=== PATIENT | male | born 1935 | race Caucasian/White ===

== ENCOUNTER 2016-12-07 06:26 | Emergency (ER) | payer MEDICARE ==
[~2016-12-07] VITALS: Ht 175.3 cm; Wt 81.8 kg
[~2016-12-07 06:26] MED LIST: AMIO400T4 PO; AMLO10TA3 PO; CHOL200025 PO; CYAN500 PO; FERR325T39 PO; LEVO75TA4 PO; METO25TA6 PO; MULT-666 PO; NITR0.4T6 SL; OMEP40CA36 PO; PRAV40TA PO; WARF4TAB6 PO
[2016-12-07 06:31] VITALS: BP 118/57; PULSE 55; RESP 18; O2SAT 96
--- NOTE | 2016-12-07 06:42 | ED.REPORT ---
HPI-Abd Pain M 40 and Over Date of Service Dec 07, 2016 ED Provider: Asif Marin MD Patient is an 81 year old male on Warfarin who presents to the ED complaining of low back pain onset 3 weeks ago. Associated symptoms include lower abdominal pain, chills, fatigue, nausea, dizziness, dysuria (without Flomax), decreased appetite, weight loss (8-10 lbs over one month), constipation, hematochezia ( one instance 2 weeks ago), rash (on chest, abdomen, and back), and testicular pain. His back pain is intermittent but his abdominal pain is constant. He denies fever, vomiting, lower extremity swelling, or any other symptoms. He has seen his PCP because couldn't urinate and his PSA levels fluctuating so he was put on Flomax. Gastroenterology appt on 12/16/16 He has been taking 500 mg of Tylenol every 4-5 hours to manage his back pain. succinate omeprazole Nursing Notes Stated Complaint: BACK PAIN Chief Complaint: Male Abdominal Pain Nursing Notes Reviewed: Yes (CloudVolumes not reconciled, EMR indicates ho warfarin use) Allergies: Coded Allergies: No Known Allergies (Verified Allergy, Unknown, 12/07/16) Scheduled Amiodarone (Amiodarone) 400 Mg Tablet 400 MG PO TID Amlodipine (Amlodipine) 10 Mg Tablet 10 MG PO DAILY Cholecalciferol (Vitamin D3) (Vitamin D3) 2,000 Unit Tablet 2,000 UNIT PO DAILY Cyanocobalamin (Vitamin B12) 1,000 Mcg Tablet 1,000 MCG PO DAILY Ferrous Sulfate (Iron) 325 Mg Tablet 325 MG PO DAILY Levothyroxine (Levothyroxine) 75 Mcg Tablet 75 MCG PO DAILY Metoprolol Tartrate (Metoprolol Tartrate) 25 Mg Tablet 25 MG PO BID Multivitamin (Once Daily) 1 Each Tablet 1 EACH PO DAILY Omeprazole (Omeprazole) 40 Mg Capsule.dr 40 MG PO DAILY Pravastatin (Pravastatin) 40 Mg Tablet 40 MG PO DAILY Warfarin Sodium (Warfarin Sodium) 4 Mg Tablet 4 MG PO DAILY Scheduled PRN Morphine Sulfate (Morphine Sulfate) 15 Mg Tablet 15 MG PO q4-6H PRN PRN For Pain Start with one tab. Miscellaneous Medications Nitroglycerin SL (Nitroglycerin SL) 0.4 Mg Tab.subl 0.4 MG SL General Time Seen by MD: 06:35 Chief Complaint Other (Back pain) Hx Obtained From: Patient Arrived By: Walk-in Sudden in Onset?: Yes Onset Occurred: More than a week ago... (3 weeks) Recent Healthcare: Recent doctor visit Risk Factors )( AAA Risk Stratification Hypertension Smoking (Former )No Prior AAA Risk factors reviewed Past Medical History Past Medical History Notes: PCP: Dr. Hollis Clinical Account Executive: Dr. Cunningham Echocardiogram February 2014 EF of 50%, distal septal and inferior wall hypokinesis, mild right ventricular dilation, no significant valvular heart disease Past Medical History Ocular migraines History paroxysmal atrial fibrillation History of anemia and colon polyps History of dysphagia Hypertension Coronary artery disease Hyperlipidemia History of tubular adenoma Reports: Cancer Past Surgical History 2 way bypass (BIRCH to LAD, SVG to OM) Cardiac stents - most recently in July 2013 Left carotid endarterectomy in 1997 Cardiac cath February 2014, 99% distal left main lesion, circumflex occluded ostially, right coronary artery 60-70% stenosis of the proximal portion, Upper endoscopy November 2014-gastritis, duodenitis, biopsies taken evaluate for Harmon's esophagus Colonoscopy November 2014-multiple colon polyps removed vein graft to obtuse marginal with at least 3 serial 90% lesions that are heavily calcified Reports: CABG, Carotid endarterectomy Family History noncontributory Smoking History Former Smoker Social History Drug Use: Denies drug use Other Social History: Good social support, , Local resident Ambulatory Status Independent Review of Systems Constitutional: Reports: Chills, Fatigue, Recent wt loss, Denies: Fever Cardiovascular: Denies: Chest pain, Edema GI: Reports: Constipation, Hematochezia, Nausea, Denies: Vomiting Male: Reports Dysuria, Reports Testicular pain Musculoskeletal: Reports: Back pain Complete sys rev & neg: except as marked. Skin: Reports Rash Neurologic: Reports: Dizziness Physical Exam Initial Vital Signs Vital Signs (First) Date Time Temp Pulse Resp B/P Pulse Ox O2 Delivery O2 Flow Rate FiO2 12/07/16 06:31 35.9 55 18 118/57 96 Room Air 12/07/16 09:19 2 Initial VS: Reviewed Neurologic: Alert, Oriented, Nonfocal Psychiatric: Mood/affect normal, Behavior normal, Normal thought content General/Constitutional: Awake, Alert, No acute distress, Well developed Fatigued Respiratory / Chest: Breath sounds NL, Breath sounds = bilat, No respiratory distress Cardiovascular: Heart rate NL, Peripheral circulation NL Abdomen: Soft, Non-tender Reports pain in the Periumbilical and epigastric regions but in non-tender to palpation Back: Atraumatic, Inspection NL, Non-tender Head / Eyes: Conjunctiva NL Skin: Warm, Dry no Jaundice or pallor Lower Extremity / Pelvis / MS: No edema Interpretation & Diagnostics Lab Results Interpretation Result Diagram: 12/07/16 0720 12/07/16 0720 Test 12/07/16 07:20 12/07/16 08:43 White Blood Count 9.0th/mm3 (3.8-10.1) Red Blood Count 3.74mil/mm3 (4.40-5.80) Hemoglobin 10.9g/dL (13.8-17.2) Hematocrit 34.1% (41.0-50.0) Mean Corpuscular Volume 91.2fL (81-100) Mean Corpuscular Hemoglobin 29.1pg (27.0-35.0) Mean Corpuscular Hemoglobin Concent 32.0% (32.0-37.0) Red Cell Distribution Width 14.0% (12.3-15.4) Platelet Count 302bil/L (150-400) Neutrophils (%) (Auto) 71.1% (40-74) Lymphocytes (%) (Auto) 9.4% (14-46) Monocytes (%) (Auto) 16.3% (4-12) Eosinophils (%) (Auto) 2.3% (0-5) Basophils (%) (Auto) 0.6% (0-3) Prothrombin Time 27.2sec (8.1-12.5) Prothromb Time International Ratio 2.50ratio Sodium Level 137mEq/L (134-144) Potassium Level 4.3mEq/L (3.5-5.2) Chloride Level 101mEq/L (97-108) Carbon Dioxide Level 25mmol/L (18-29) Blood Urea Nitrogen 23mg/dL (8-27) Creatinine 0.99mg/dL (0.76-1.27) Estimat Glomerular Filtration Rate 77mL/min (>59) Glucose Level 120mg/dL (60-99) Lactic Acid Level 0.9mmol/L (0.4-2.0) Calcium Level 8.4mg/dL (8.5-10.1) Magnesium Level 2.4mg/dL (1.6-2.6) Total Bilirubin 0.3mg/dL (0.0-1.2) Aspartate Amino Transf (AST/SGOT) 34U/L (0-50) Alanine Aminotransferase (ALT/SGPT) 18U/L (0-44) Alkaline Phosphatase 75U/L (25-160) Total Protein 6.2g/dL (6.4-8.4) Albumin 3.5g/dL (3.4-5.0) Lipase 37U/L (13-60) Urine Color Straw (YELLOW) Urine Appearance Clear (CLEAR,HAZY) Urine pH 6.5 (5.0-8.0) Urine Specific [place] 1.018 (1.003-1.035) Urine Protein Negativemg/dL (NEG,TRACE) Urine Glucose (UA) Negativemg/dL (NEGATIVE) Urine Ketones Negativemg/dL (NEGATIVE) Urine Occult Blood Negative (NEGATIVE) Urine Nitrite Negative (NEGATIVE) Urine Bilirubin Negative (NEGATIVE) Urine Urobilinogen Normalmg/dL (NORMAL) Urine Leukocyte Esterase Negative (NEGATIVE) Urine RBC 0-2/hpf (0-2) Urine WBC 0-5/hpf (0-5) Urine Epithelial Cells None/hpf (NONE-MOD) Urine Crystals None seen (NONE SEEN) Urine Bacteria None/hpf (NONE-FEW) Urine Hyaline Casts None/lpf (NONE) Urine Granular Casts None seen (NONE SEEN) Urine Waxy Casts None seen (NONE SEEN) Urine Red Blood Cell Casts None seen (NONE SEEN) Urine White Blood Cell Casts None seen (NONE SEEN) Urine Mucus None seen (None Seen) Urine Trichomonas None seen (NONE SEEN) Urine Yeast None (NONE SEEN) Urinalysis Comment None Urine Culture Reflexed Not indicated Lab Results Interpretation: CBC normal (trace but not significant anemia)+ CMP normal Therapeutic INR ECG Interpretation ECG Interpretation: Sinus rate 70 Borderline first degree block Q waves anteriorly No longer has RBBB seen on previous EKG one year ago Time: 07:20 Interpreted by: ED physician CT Abd / Pelvis Interpretation IMPRESSION: Cecal and right colonic wall thickening. The appendix appears normal. Therefore findings could represent right-sided inflammatory or infectious colitis however this could also represent colonic malignancy and recommend clinical correlation, and surgical consultation/endoscopic followup as indicated. Typhlitis is conceivable in the setting of neutropenia. Numerous enlarged mesenteric and retroperitoneal lymph nodes, suspicious for metastatic disease or potentially lymphoma. Reactive enlargement is thought to be less likely given the overall extent and severity. Please correlate clinically. Moderate hiatal hernia. Dictated by: Benny Ann M.D. on 12/07/2016 at 10:03 Approved by: Benny Ann M.D. on 12/07/2016 at 10:15 Study type: Abdominal CT IV contrast, Abdom CT oral contrast Interpretation / Wet Read by: Interpret - Radiologist Re-Eval/Medical Decision Med Decision/Clinical Course This is an 81-year-old male on Coumadin for atrial fibrillation who presents complaining of abdominal pain, weight loss, and increasing discomfort over the past 4-6 weeks. He has been taking Tylenol only 500 mg up to 4 times a day which generally been helping, and he has been set up to see GI in the next few weeks for further evaluation or repeat colonoscopy secondary to history of multiple colon polyps, but reports he came in because the pain was just getting worse. He has had no fever, no nausea vomiting. His reports an episode of some rectal bleeding was one episode 2 weeks ago-with no recurrences. Is worried about his prostate, as he has had a mildly elevated [employer] recently-denies bill dysuria. He is also complaining of some back discomfort however it is nonmechanical. He denies night sweats. Exam is fatigued, but nontoxic. His abdomen is soft and entirely nontender. Overall this is an 81-year-old male presents with concerning symptoms given the duration, weight loss, etc. Blood work was normal, CT imaging is concerning for the possibility of malignancy with a thickened colon wall, and both mesenteric and retroperitoneal adenopathy identified. Differential includes infectious etiologies, but the patient is not describing fever, diarrhea or other infectious signs. he is doing well in the department, and declines any medicine he is able to eat and drink-I am not finding indication he requires admission at this time. However contacted the on-call quantitative analyst, and the GI group is going to try and expedite his evaluation, the patient is to call on Friday to discuss scheduling. Given he is normally anticoagulated on warfarin for his chronic A. fib, this will he held at present to facilitate the plan colonoscopy. Shortly I discussed the case with the on-call physician Dr. Arnold for his primary care physician. The patient is being discharged-he is instructed to you take it continued dose of Tylenol and a dose of 500-1,000 mg up to 4 times a day for pain control. Additionally I written for some instant release morphine tablets (see current recommendations on EMRAP for IR analgesia, 11/2016) in order to avoid in it complicating acetaminophen-containing medication. Abrasions were also discussed. And's were discussed including need to return if new, worsening or uncontrolled symptoms-or if fever develops. he was discharged in stable condition. Source of Hx: Old records Time of Eval: 11:03 )( Re-Eval Abdomen: Soft Re-Evaluation/Progress Note: Rechecked patient. Discussed plan for discharge with follow-up. Patient understands and agrees with plan. All questions addressed at this time. Consultation #1: Referral / Consult Name: Cris Bolton MD Call Returned at: 10:50 Youth Services Specialist: Agrees with eval, Agrees with plan Note: Discussed patient's case with Gastro. Follow up in office. Consultation #2: Referral / Consult Name: Anand Arnold DO Call Returned at: 11:13 Youth Services Specialist: Agrees with eval, Agrees with plan Note: Discussed case with on-call doc for patient's PCP. Agrees with plan. Counseled Regarding: Diagnosis, Lab results, Need for follow-up, When/why to return to ED Discharge & Departure Primary Impression: Abdominal pain Abdominal location: unspecified location Qualified Code: R10.9 - Unspecified abdominal pain Additional Impressions: Mesenteric lymphadenopathy Colon wall thickening Retroperitoneal lymphadenopathy Anticoagulated on warfarin Disposition: Home Vital Signs - All Vital Signs Date Time Temp Pulse Resp B/P Pulse Ox O2 Delivery O2 Flow Rate FiO2 12/07/16 11:59 76 18 139/53 93 Room Air 12/07/16 11:06 75 20 135/67 95 Nasal Cannula 2 12/07/16 09:19 80 15 137/73 97 Nasal Cannula 2 12/07/16 07:12 37 112 18 118/40 93 Room Air 12/07/16 06:31 35.9 55 18 118/57 96 Room Air )( All Prior VS Reviewed: Yes Condition: Stable Additional Instructions: 1. Your blood work was normal. 2. Your CT scan revealed thickening of the colon, as well as abnormally large lymph nodes in the abdomen and retroperitoneum. The exact cause of these findings is uncertain, but the next step is typically a colonoscopy. 3. I have called the gastroenterology office, and they are going to try and expedite your colonoscopy. Please call their office on Friday. 4. To help facilitate a expedited colonoscopy, go ahead and stop taking your warfarin now-as this must be held prior pursuing a procedure. 5. Continue the Tylenol (acetaminophen) 500-1000 mg up to 4 times a day as needed for pain. 6. Take Morphine Instant release tabs 1-2 tabs (start with ONE tab) up to every 4-6 hours for more severe pain. Note: This contains a narcotic and can cause some drowsiness. You should also take a stool softener daily if needing to use this medication for pain. 7. Return again if new or worsening symptoms-particular if you developed a fever. Referrals: Ehsan Hollis MD (PCP) Scribe Attestation Portions of this note were transcribed by Manda Tobar. I, Dr. Marin personally performed the history, physical exam and medical decision-making; I reviewed and confirmed the accuracy of the information in the transcribed note. Signed by: Manda Tobar 12/07/16, 1148 copies to: Ehsan Hollis MD, Matthew F MD Dec 07, 2016 06:42 MANDA TOBAR Dec 07, 2016 06:50
[2016-12-07] MEDS ORDERED: Iohexol 300 mg/mL 30 mL Inj PO ONE (07:00)
[2016-12-07] MEDS ORDERED: Ondansetron 2 mg/mL 2 mL Inj IVPUSH ONE (07:00)
[2016-12-07] MEDS ORDERED: HYDROmorphone 0.5 mg/0.5 mL iSecure Syringe IVPUSH PRN (07:00)
[2016-12-07 07:12] VITALS: BP 118/40; PULSE 112; RESP 18; O2SAT 93
[2016-12-07 07:36] LABS: BASOPHILS % (AUTO) 0.6 % (0-3); EOSINOPHILS % (AUTO) 2.3 % (0-5); MONOCYTES % (AUTO) 16.3 % (4-12); Mean Corpuscular Hemoglobin 29.1 pg (27.0-35.0); Mean Corpuscular Volume 91.2 fL (81-100); NEUTROPHILS % (AUTO) 71.1 % (40-74); Platelet Count 302 bil/L (150-400)
[2016-12-07 07:52] LABS: INR 2.5 ratio
[2016-12-07 07:57] LABS: Magnesium 2.4 mg/dL (1.6-2.6)
[2016-12-07 09:19] VITALS: BP 137/73; PULSE 80; RESP 15; O2SAT 97
[2016-12-07 09:23] LABS: APPEARANCE,URINE CLEAR (CLEAR,HAZY); COLOR,URINE STRAW (YELLOW); OCCULT BLOOD,URINE NEGATIVE (NEGATIVE); PH,URINE 6.5 (5.0-8.0); UROBILINOGEN,URINE NORMAL (NORMAL)
--- NOTE | 2016-12-07 10:17 | DRSVH ---
PROCEDURE: CT ABDOMEN AND PELVIS WITH CONTRAST ([id number]) INDICATIONS: ABD PAIN, BACK PAIN TECHNIQUE: After the administration of oral and intravenous contrast, 5 mm thick sections acquired from the diap hragms to the symphysis. 5 mm thick coronal and sagittal reformats were performed. For radiation do se reduction, the following was used: automated exposure control, adjustment of mA and/or kV accordi ng to patient size. COMPARISON: [facility], CR, CHEST 2VW, 01/12/2015, 7:49. FINDINGS: Image quality: Excellent. ABDOMEN: Lung bases: Lung bases are clear. Heart size is normal. Solid organs: Liver and spleen are normal in size and enhancement. Gallbladder unremarkable. Bilia ry system is non-dilated. Pancreas enhances normally. Possible 5 mm left adrenal nodule. However thi s is technically indeterminate and could be followed up with CT in one year for further assessment. N o right adrenal nodules. Kidneys are normal in size and enhancement, without hydronephrosis. Peritoneum and bowel: Moderate hiatal hernia. No bowel obstruction free fluid or free air. There is p rominent cecal and right colonic wall thickening, with adjacent fat stranding, however the appendix a ppears grossly normal. Nodes and vessels: Enlarged retroperitoneal and mesenteric lymph nodes are present, the largest seen in the right mesenteric root measuring 2.8 x 5.2 cm. Miscellaneous: No ventral hernias. PELVIS: Genitourinary: Bladder wall thickness is normal. Miscellaneous: Bilateral small fat-containing inguinal hernias. No inguinal lymphadenopathy by size c riteria Bones: T12 compression fracture is seen, as before IMPRESSION: Cecal and right colonic wall thickening. The appendix appears normal. Therefore findings could repres ent right-sided inflammatory or infectious colitis however this could also represent colonic malignan cy and recommend clinical correlation, and surgical consultation/endoscopic followup as indicated. Ty phlitis is conceivable in the setting of neutropenia. Numerous enlarged mesenteric and retroperitoneal lymph nodes, suspicious for metastatic disease or po tentially lymphoma. Reactive enlargement is thought to be less likely given the overall extent and se verity. Please correlate clinically. Moderate hiatal hernia. Dictated by: Benny Ann M.D. on 12/07/2016 at 10:03 Approved by: Benny Ann M.D. on 12/07/2016 at 10:15
[2016-12-07 11:06] VITALS: BP 135/67; PULSE 75; RESP 20; O2SAT 95
[2016-12-07] MEDS ORDERED: MORP15TA PO (11:26)
[2016-12-07 11:59] VITALS: BP 139/53; PULSE 76; RESP 18; O2SAT 93
[2016-12-12] MEDS ORDERED: LISI-571 PO (12:52)
[2016-12-12] MEDS ORDERED: OMEP20TA24 PO (12:52)
[2016-12-12] MEDS ORDERED: HYDR-4003 PO (12:52)
[2016-12-12] MEDS ORDERED: CHOL200047 PO (12:52)
[2016-12-12] MEDS ORDERED: VITA400C64 PO (12:52)
[2016-12-12] MEDS ORDERED: ATOR80TA PO (12:52)
[2016-12-12] MEDS ORDERED: METO-272 PO (12:52)
[2016-12-12] MEDS ORDERED: TAMS0.4C98 PO (12:52)
[2016-12-12] MEDS ORDERED: CYAN500 PO (12:52)
[2016-12-12] MEDS ORDERED: WARF4TAB6 PO (12:52)
[2016-12-12] MEDS ORDERED: NITR0.4T6 SL (12:52)
[2016-12-12] MEDS ORDERED: FERR325C PO (12:52)
[2016-12-12] MEDS ORDERED: MULT-1018 PO (12:52)
[2016-12-12] MEDS ORDERED: LEVO75TA36 PO (12:52)
[2016-12-12] MEDS ORDERED: ASCO-294 PO (12:52)
[2016-12-12] MEDS ORDERED: AMLO10TA3 PO (12:52)
[2016-12-12] MEDS ORDERED: FURO-129 PO (12:52)
[2016-12-20] MEDS ORDERED: LOVENOX BRIDGING (16:51)
[2016-12-24] MEDS ORDERED: MORP15TA PO (10:15)
== END 2016-12-07 12:00 | disposition home or self-care (01) ==
LOC: SED 06:26
DX: I88.0 Nonspecific mesenteric lymphadenitis (principal); K63.89 Other specified diseases of intestine; I10 Essential (primary) hypertension; I25.10 Atherosclerotic heart disease of native coronary artery without angina pectoris; E78.5 Hyperlipidemia, unspecified; Z87.891 Personal history of nicotine dependence; Z85.9 Personal history of malignant neoplasm, unspecified; Z95.1 Presence of aortocoronary bypass graft; Z79.01 Long term (current) use of anticoagulants
CPT/HCPCS: 36415; 74177; 80053; 81000; 83605; 83690; 83735; 85025; 85610; 86850; 93005; 96374; 96375; 99285; J1170; J2405; Q9967

== ENCOUNTER 2016-12-13 13:45 | Day surgery (SDC) | payer MEDICARE ==
[~2016-12-13] VITALS: Ht 175.3 cm; Wt 79.0 kg
[~2016-12-13 13:45] MED LIST changes: -AMIO400T4 PO; +ASCO-294 PO; +ATOR80TA PO; -CHOL200025 PO; +CHOL200047 PO; +FERR325C PO; -FERR325T39 PO; +FURO-129 PO; +HYDR-4003 PO; +LEVO75TA36 PO; -LEVO75TA4 PO; +LISI-571 PO; +Lactated Ringer's 1,000 ML IV ONE; +METO-272 PO; -METO25TA6 PO; +MULT-1018 PO; -MULT-666 PO; +OMEP20TA24 PO; -OMEP40CA36 PO; -PRAV40TA PO; +TAMS0.4C98 PO; +VITA400C64 PO
[2016-12-13] MEDS ORDERED: Propofol 10,000 mCg/mL 20 mL Inj ONE (13:46)
[2016-12-13] MEDS ORDERED: Lidocaine PF 1% 30 mL Inj ONE (13:46)
[2016-12-13] MEDS ORDERED: HYDR-4003 PO (14:15)
[2016-12-13] MEDS ORDERED: MORP10SO PO (14:15)
[2016-12-13 14:41] VITALS: BP 145/82; PULSE 84; RESP 18; O2SAT 93
[2016-12-13] MEDS ORDERED: Ondansetron 2 mg/mL 2 mL Inj IVPUSH PRN (14:50)
[2016-12-13] MEDS ORDERED: Lactated Ringer's 1,000 ML IV SCH (14:50)
[2016-12-13] MEDS ORDERED: MetoCLOpramide 5 mg/mL 2 mL Inj IVPUSH PRN (14:50)
--- NOTE | 2016-12-13 14:50 | PCM.HPANE ---
Patient Data Date of Service: Dec 13, 2016 Surgeon Admitting Provider: Attending Provider:Elroy Torres MD Primary Care Physician:Ehsan Hollis MD Other Provider:Mignon Farfan Anesthesia Reason for Visit Abnormal Ct Scan Ht/WT & BMI Height (Feet): 5 Height (Inches): 9 Weight (Kilograms): 79 Body Mass Index 25.00 Allergies Coded Allergies: No Known Allergies (Verified Allergy, Unknown, 12/13/16) Past Anesthesia History Anesthesia History: Denies:: Anesthesia Reactions, Fam Anesthesia Reaction, Malignant Hyperthermia Diabetes History Hx Diabetes?: No MRSA MRSA: No Medications Blood Thinner: Coumadin Last Dose Blood Thinner: Dec 06, 2016 Home Meds Incl Beta Sanjuana: Yes (metoprolol) Date Beta Sanjuana Taken: Dec 12, 2016 Time Beta Sanjuana Taken: 0800 Reported Medications Morphine Sulfate Oral Soln 10 Mg/5 Ml Sqjvttck83 Mg PO QID PRN For Pain 12/13/16 Hydrocodone-Acetaminophen 5-325 mg 1 Each Tablet1 Tablet PO Q4H PRN For Pain Ref 0 12/13/16 Warfarin Sodium 4 Mg Tablet4 Mg PO DAILY 30 Days Ref 0 12/12/16 Vitamin E Mixed (Vitamin E)400 Unit Amknitr220 Unit PO DAILY 30 Days 12/12/16 Cholecalciferol (Vitamin D3) (Vitamin D3)2,000 Unit Capsule2,000 Unit PO DAILY 12/12/16 Ascorbate Calcium (Vitamin C)500 Mg Qhbnwd034 Mg PO DAILY 12/12/16 Cyanocobalamin (Vitamin B12)500 Mcg Tablet1,000 Mcg PO DAILY 12/12/16 Tamsulosin (Flomax)0.4 Mg Capsule0.4 Mg PO DAILY Ref 0 12/12/16 Omeprazole Magnesium (Prilosec Otc)20 Mg Tablet.dr20 Mg PO DAILY #1 PKG Ref 0 12/12/16 Nitroglycerin SL 0.4 Mg Tab.subl0.4 Mg SL 12/12/16 Multivitamin (Multi Vitamin Daily)1 Each Tablet1 Each PO DAILY 30 Days Ref 0 12/12/16 Metoprolol Succinate ER 50 Mg Tab.er.24h50 Mg PO BID Ref 0 12/12/16 Lisinopril 5 Mg Tablet5 Mg PO DAILY #30 TABLET Ref 0 12/12/16 Atorvastatin (Lipitor)80 Mg Aacdup91 Mg PO DAILY Ref 0 12/12/16 Levothyroxine (Levoxyl)75 Mcg Dpfwpa41 Mcg PO DAILY Ref 0 12/12/16 Furosemide (Lasix)20 Mg Usjvqx61 Mg PO DAILY 30 Days Ref 0 12/12/16 Ferrous Sulfate (Iron)325 Mg Capsule.er325 Mg PO DAILY 12/12/16 Hydrocodone-Acetaminophen 5-325 mg 1 Each Tablet1 Tablet PO Q4H PRN For Pain Ref 0 12/12/16 Amlodipine 10 Mg Bbwsxk31 Mg PO DAILY Ref 0 12/12/16 Discontinued Reported Medications Warfarin Sodium 4 Mg Tablet4 Mg PO DAILY 10/10/15 Levothyroxine 75 Mcg Tbecdq23 Mcg PO DAILY Ref 0 10/10/15 Amlodipine 10 Mg Buumnq52 Mg PO DAILY Ref 0 10/10/15 Multivitamin (Once Daily)1 Each Tablet1 Each PO DAILY 10/10/15 Omeprazole 40 Mg Capsule.dr40 Mg PO DAILY Ref 0 10/10/15 Cyanocobalamin (Vitamin B12)1,000 Mcg Tablet1,000 Mcg PO DAILY 01/10/15 Pravastatin 40 Mg Matwey32 Mg PO DAILY 30 Days Ref 0 01/10/15 Nitroglycerin SL 0.4 Mg Tab.subl0.4 Mg SL 01/10/15 Metoprolol Tartrate 25 Mg Lzydux49 Mg PO BID 30 Days Ref 0 01/10/15 Ferrous Sulfate (Iron)325 Mg Qhuinm546 Mg PO DAILY 10/18/14 Cholecalciferol (Vitamin D3) (Vitamin D3)2,000 Unit Tablet2,000 Unit PO DAILY 10/18/14 Discontinued Scripts Morphine Sulfate 15 Mg Jxkqqm90 Mg PO q4-6H PRN For Pain #20 TABLET Start with one tab. Prov:Asif Marin MD 12/07/16 Amiodarone 400 Mg Zurgxq862 Mg PO TID #21 TABLET Ref 0 Prov:Patsy Worley MD 10/10/15 History History of ENT Problems?: No HEENT History: Positive for:: Dysphagia Hearing Problem ([place]) Denies:: Cataracts Sinus Problem (drains in cold weather) Denture Type: Full- Upper Hx of Heart Problems?: Yes Cardiovascular History: Positive for:: Atrial Fibrillation Cardiac Surgery (DOUBLE BYPASS-2002; STENT PLACEMENT-07/2014) Chest Pain Hypertension Irregular Heartbeat (EPISODES OF AFIB) Pacemaker Denies:: Congestive Heart Failure Edema Heart Murmur Thrombophlebitis Hx of Respiratory Problem?: Yes Respiratory History: Positive for:: COPD Pneumonia (over 5 years ago) Denies:: Asthma Chest Surgery Dyspnea Emphysema Hemoptysis Tuberculosis Hx Neurologic Problems?: No Neurological History: Denies:: Alzheimer's Disease CVA (hx CEA) Dementia Dizziness Headaches Parkinson's Disease Seizures Hx of GI Problems?: Yes Gastrointestinal History: Positive for:: Gastroesphageal Reflux Heartburn Rectal Bleeding Denies:: Cirrhosis Diverticulitis Gall Bladder Disease Gastrointestinal Bleeding Hepatitis Hiatal Hernia Liver Disease Hx of Problems?: No Genitourinary History: Denies:: HX of Hemodialysis Kidney Stones Urinary Tract Infection HX of Peritoneal Dialysis: No Male Hx: Denies:: Prostate Problems Scrotal Mass Testicular Surgery Hx Musculoskeletal Problems?: Yes Musculoskeletal History: Positive for:: Back Injury Denies:: Joint Replacement Musculoskeletal Trauma Hx of Psycho/Social Problems?: No Psycho Social History: Positive for:: Anxiety Hx Depression Denies:: Bipolar Disorder Suicide Attempt Hx Surgeries?: Yes (cauroted arteriy, CABG, stents) Hx Any Other Health Problems?: No Other History: Positive for:: Cancer ([id number]) Hospitalization (IB-2013 ) Thyroid Disease (BORDERLINE - discontinued medications) Denies:: Endocrine Disease History Blood Transfusions: Denies:: Blood Transfuse Reaction Blood Transfusions Hx Diabetes: No Hx Alcohol Use: Yes (1-2 drinks wine weekly)Hx Substance Use: No Smoking Status: Former Smoker Have You Smoked inLast 12 mo: No Stop/Bang Treated for Sleep Apnea?: No Do You Have a CPAP Machine?: No S-Snoring: Do You Snore Loudly: No T-Tired: feel tired, fatigued: No O-Obsered: Observed not breath: No P-Blood Pressure: treated: No B- Body Mass Index > 35 kg/m2: No A- Age over 50: Yes N- Neck Large Circumference: No G- Gender Male: Yes MILLI Total Score: 2 Risk Assessment Category Category 1A: Patient has history of documented sleep apnea, and HAS NOT received any narcotic, sedative or anesthesia administration during this stay. Category 1B: Patient has history of documented sleep apnea, and HAS received any narcotic , sedative or anesthesia administration during this stay Category 2: Patient has SUSPECTED Obstructive Sleep Apnea, and HAS received any narcotic , sedative or anesthesia administration during this stay. Category 3: Patient has SUSPECTED Obstructive Sleep Apnea and HAS NOT received narcotic, sedative or anesthesia administration during this stay. Category 4: Outpatient in Procedural Areas with known sleep apnea or who screen positive for High Risk via the STOP/BANG questionnaire. Exam Exam Vital Signs Vital Signs Date Time Temp Pulse Resp B/P Pulse Ox O2 Delivery O2 Flow Rate FiO2 12/13/16 14:41 84 18 145/82 93 Room Air General Appearance: Alert, Oriented X3, Cooperative HEENT/AIRWAY: MP 1, Neck Movement (OK), Mouth Opening (Wide), Other (upper dentures) Lungs: Clear to Auscultation, Normal Air Movement Heart: Regular Rate/Rhythm, Normal S1, Normal S2 Plan Impression Patient chart reviewed, patient interviewed and anesthestic plan with risks, benefits, and alternatives discussed, and informed consent obtained. NPO Status: > 2 hours ASA Physical Status: ASA3 Severe Disease Anesthetic Plan: MAC Bene/Risks/Altern/Consents: Yes HP Complete Prior to Induction: Yes Silas Duvall MD Dec 13, 2016 14:50
[2016-12-13 15:26] VITALS: BP 123/70; PULSE 76; RESP 14; O2SAT 95
--- NOTE | 2016-12-13 15:32 | PCM.ANEP1 ---
Post Anesthesia Phase 1 PACU Phase 1 Assessment Date of Service: Dec 13, 2016 Vital Signs Vital Signs Date Time Temp Pulse Resp B/P Pulse Ox O2 Delivery O2 Flow Rate FiO2 12/13/16 15:26 36.5 76 14 123/70 95 Room Air 12/13/16 14:41 84 18 145/82 93 Room Air Anesthetic Administered: MAC SARKAR's with Equal Strength: Yes Pain: No Nausea or Vomiting: No Oxygen Delivery: Room Air Lungs: Normal Air Movement Silas Duvall MD Dec 13, 2016 15:32
[2016-12-13 15:36] VITALS: BP 147/80; PULSE 80; RESP 14; O2SAT 96
[2016-12-13 15:43] VITALS: BP 136/80; PULSE 80; RESP 16; O2SAT 96
--- NOTE | 2016-12-13 15:45 | PCM.ANEP2 ---
Post Anesthesia Evaluation ASA/CMS Post Anesthesia Date of Service: Dec 13, 2016 VS in Patient's Normal Range?: Yes Resp Stable; Airway Patent?: Yes CV Function & Hydration Stable: Yes Mental Status Recovered?: Yes Pain control Satisfactory?: Yes N/V Control Satisfactory?: Yes Silas Duvall MD Dec 13, 2016 15:45
--- NOTE | 2016-12-13 15:49 | ENDO ---
[address] [address] ENDOSCOPY PROCEDURE PATIENT: CONOR BULLOCK : 1935 MR#: [id number] ADMIT: 12/13/2016 JOB ID: [id number] DATE OF SERVICE: 12/13/2016 TYPE OF OPERATION: Colonoscopy with biopsy. PREOPERATIVE DIAGNOSIS(ES): Abnormal CT scan. POSTOPERATIVE DIAGNOSIS(ES): Cecal mass with ulceration and necrotic tissue seen at the appendiceal orifice, status post biopsy and gastrointestinal spot tattoo. ANESTHESIA: Monitored anesthesia care. COMPLICATIONS: None. BLOOD LOSS: Minimal. DESCRIPTION OF PROCEDURE: After risks and benefits were explained to patient, informed consent was obtained. After anesthesia administered, colonoscope was then inserted from rectum to cecum. Mucosa carefully examined. Prep of the patient was excellent. After the procedure was done, the scope withdrawn and procedure terminated. FINDINGS: Upon inspection of the anus, no masses, hemorrhoids, ulcers, or fissures that were seen. Throughout the entire examination, there was a cecal mass with necrotic tissue and ulceration that was friable upon biopsy at the appendiceal orifice. Several biopsies were taken around the edges of the cecal mass where there appeared to be viable tissue which was friable. Afterwards, a GI spot tattoo of approximately 5 cc was then injected at the cecum with good visualization. There were no other polyps or masses that were seen. Retroflexion was normal. IMPRESSION: Cecal mass with necrotic tissue and ulceration, seen at the appendiceal orifice, status post biopsy around the edges where friable tissue appearing was seen, status post gastrointestinal spot tattoo, 5 cc, at the cecum. RECOMMENDATIONS: 1. Await pathology results. 2. General Surgery consultation as an outpatient. 3. We will talk to the family today and let them know what the results are.
--- NOTE | 2016-12-20 16:04 | PATH ---
SURGICAL PATHOLOGY Attending Physician:Elroy Torres MD CASE STATUS: Signed Out PATIENT NAME: CONOR BULLOCK PID: [id number] : 1935 DATE COLLECTED:12/13/2016 00:00 SPECIMEN: Colon, Biopsy CLINICAL HISTORY: 1). CECAL MASS BIOPSY FINAL DIAGNOSIS: 1.CECAL MASS, BIOPSY: POORLY-DIFFERENTIATED CARCINOMA, SEE COMMENT. 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 A definitive diagnosis of medullary carcinoma cannot be made based on this small sample of the tumor, however, and metastatic carcinoma cannot be completely excluded. The IHC does exclude lymphoma and neuroendocrine carcinoma. Clinical and imaging correlation, along with further examination of the pathology of the resected tumor, is recommended. Follow-up genetic testing for microsatellite instability is also indicated based on the mismatch repair protein studies. Preliminary findings were reported by telephone to Dr. Torres on 12/19/[address] Duarte on 12/20/[address] Ambrosio. GROSS DESCRIPTION: The specimen is received in one formalin filled container labeled with the patient's name, sublabeled "cecal mass" and consists of 4 portions of tissue which aggregate to 0.4 x 0.4 x 0.3 CM. The specimen is entirely submitted in one cassette. 12/14/2016 [facility] MICRO DESCRIPTION: Sections are of fragments of colonic tissue, two of which have a poorly-differentiated malignant neoplasm in the deep lamina propria. Cells are arranged in sheets or small cords with no definite lumen formation. A few benign glands are entrapped. The neoplastic cells have large vesicular nuclei with prominent nucleoli and moderate to small amounts of cytoplasm. Immunohistochemical stains are performed to further characterize the tumor. The patient tissue is stained with the following antibodies with the following results. Positive and negative controls stained appropriately. AntibodyResult BINH protein (BINH)Strongly positive CK7 (OV-TL12/30)Negative CK20 (SP33)Negative CD45 LCA (L60)Negative Synaptophysin (27G12)Negative Chromogranin (LK2H10)Negative CDX-2 (88)Negative Villin (CWWB1)Negative Arginase-1 (EP261)Negative MLH-1 (M1)Loss of nuclear expression MSH-2 (G979-6330)Intact nuclear expression MSH-6 (44)Intact nuclear expression PMS-2 ([id number])Loss of nuclear expression INTERPRETATION: These results support the H&E impression of a poorly-differentiated carcinoma, and exclude a neuroendocrine carcinoma and lymphoma. The IHC pattern is not typical of the usual colorectal carcinoma, but is consistent with a medullary type of colonic carcinoma in view of the loss of expression of two of the mismatch repair proteins. See diagnosis comment. INTERPRETATIONO F MISMATCH REPAIR PROTEIN (MMR) IIMUNOHISTOCHEMISTRY: Loss of nuclear expression of MLH1 and PMS2: testing for methylation of the MLH1 promotor and/or mutation of BRAF is indicated (the presence of a BRAF V600E mutation and or MLH1 methylation suggests that the tumor is sporadic and germline evaluation is probably not indicated; absence of both MLH1 and of BRAF V600E mutation suggests the possibility of Pinedo syndrome, and sequencing and/or large deletion/duplication testing of germline MLH1 may be indicated). This interpretation is based on the CAP approved Biomarker Reporting Template. The immunohistochemistry tests were developed and their performance characteristics determined by [facility]. They has not been cleared or approved by the U. S. Food and Drug Administration. The FDA has determined that such clearance or approval is not necessary. These tests is used for clinical purposes. They should not be regarded as investigational or for research. ICD-9 CODES: CPT CODES: 1: 60267, 49452, 09979, 53923, 42522, 16245, 81873, 53508, 78376, 47127, 48938, 66244, 28958, 72109, 39619 PROCEDURE/ADDENDA: Immunohistochemistry SPI Interpretation {Not Entered} Results-Comments This addendum is issued to report the result of an additional immunohistochemical stain. There is no change in diagnosis. The patient' s tumor was stained with antibody to PAX-8 (MRQ-50). The positive and negative controls stain appropriately. Result: The patient' s tumor shows no staining.Interpretation: This staining pattern is evidence against metastatic renal cell carcinoma. This test was developed and its performance characteristics determined by [facility]. It has not been cleared or approved by the U. S. Food and Drug Administration. The FDA has determined that such clearance or approval is not necessary. This test is used for clinical purposes. It should not be regarded as investigational or for research. Electronically Signed Out Janae Ambrosio MD Electronically Signed Out Janae Ambrosio MD [facility] Pathology [facility] [address], [place] [address] Technical component performed at [facility], [address], [place], [address]
[2016-12-20] MEDS ORDERED: LOVENOX BRIDGING (16:51)
[2016-12-24] MEDS ORDERED: MORP15TA PO (10:15)
== END 2016-12-13 23:59 | disposition home or self-care (01) ==
LOC: END 13:45
PROVIDERS: ATTEND Internal Medicine Gastroenterology
DX: C18.0 Malignant neoplasm of cecum (principal); I10 Essential (primary) hypertension; Z79.01 Long term (current) use of anticoagulants; Z79.899 Other long term (current) drug therapy; Z87.891 Personal history of nicotine dependence
CPT/HCPCS: 45380; J7120

== ENCOUNTER 2016-12-25 09:06 | Inpatient (IN) | payer MEDICARE ==
--- NOTE | 2016-12-24 11:41 | PCM.ANEPRE ---
Anesthesia Pre-Op Review Reason for Review: CO MORBIDITIES Anesthesia Recommendations: Proceed with Procedure Additional Comments known Afib, pacemaker. Has episodes of afib that cause dyspnoea and fatigue without syncope. Planned Afib ablation postponed due to need for colectomy for cecal mass Echo shows EF 50 % no valve issues. History of CEA 1997 FEV 68% of predicted. only 5 pack years of smoking history May need rate control Rx during surgery, or even cardioversion. Pacemaker info/recommendations sheet on chart. Consider Arterial line as welll as cardioversion pads prior to draping. Caryl Underwood MD Dec 24, 2016 11:41
[2016-12-25] VITALS (13 sets, daily range): BP systolic 71–157; BP diastolic 40–64; PULSE 42–109; RESP 16–26; O2SAT 90–98
[~2016-12-25] VITALS: Ht 175.3 cm; Wt 86.8 kg
[2016-12-25] MEDS: Lactated Ringer's 1,000 ML IV SCH ×7 (05:00→17:00)
[~2016-12-25 09:06] MED LIST changes: +Dexamethasone 4 mg/mL Inj ONE; +EPHEDrine/NS 5 mg/mL 5 mL Syringe ONE; +Glycopyrrolate 0.2 MG/ML 1mL Inj ONE; +HYDROmorphone 2 mg/mL Inj ONE; +LOVENOX BRIDGING; -Lactated Ringer's 1,000 ML IV ONE; +MORP15TA PO; +Neostigmine 1 mg/mL 10 mL Inj ONE; +Ondansetron 2 mg/mL 2 mL Inj ONE; +Phenylephrine 10,000 mCg/mL Inj ONE; +Propofol 10,000 mCg/mL 20 mL Inj ONE; +Succinylcholine Chloride 20 mg/mL 5 mL Inj ONE; +fentaNYL-PF 50 mCg/mL 2 mL Inj ONE
[2016-12-25] MEDS ORDERED: Bupivacaine Liposome 1.3% 20 mL Inj INFILTRATE SCH (09:40)
[2016-12-25] MEDS ORDERED: Heparin 5,000 Unit/mL Inj SUBQ PRN (09:40)
[2016-12-25] MEDS: CeFAZolin Inj 2 GM in IV Premix 1 EACH IV ONE ×2 (11:04→11:50)
[2016-12-25 11:11] LABS: Mean Corpuscular Hemoglobin 28.3 pg (27.0-35.0); Mean Corpuscular Volume 88.8 fL (81-100)
[2016-12-25 11:25] LABS: INR 1.26 ratio
[2016-12-25] MEDS ORDERED: Lactated Ringer's 500 ML IV PRN (12:23)
--- NOTE | 2016-12-25 12:23 | PCM.HPANE ---
Patient Data Surgeon Admitting Provider: Attending Provider:Smith Duarte MD Primary Care Physician:Ehsan Hollis MD Other Provider:[facility] Anesthesia Reason for Visit Cecum Mass Ht/WT & BMI Height (Feet): 5 Height (Inches): 9 Weight (Kilograms): 81.193 Body Mass Index 26.00 Allergies Coded Allergies: No Known Allergies (Verified Allergy, Unknown, 12/20/16) Past Anesthesia History Anesthesia History: Denies:: Anesthesia Reactions, Fam Anesthesia Reaction, Malignant Hyperthermia Diabetes History Hx Diabetes?: No MRSA MRSA: No Medications Blood Thinner: Coumadin, Lovenox Hypertension Medication: Yes (LISINOPRIL,AMLODIPINE,LASIX) Home Meds Incl Beta Sanjuana: Yes (METOPROLOL) Reported Medications Morphine Sulfate 15 Mg Xtsafm23 Mg PO Q6H PRN PRN 12/24/16 [Lovenox Bridging] No Conflict Check 12/20/16 Warfarin Sodium 4 Mg Tablet4 Mg PO DAILY 30 Days Ref 0 12/12/16 Vitamin E Mixed (Vitamin E)400 Unit Afqumai191 Unit PO DAILY 30 Days 12/12/16 Cholecalciferol (Vitamin D3) (Vitamin D3)2,000 Unit Capsule2,000 Unit PO DAILY 12/12/16 Ascorbate Calcium (Vitamin C)500 Mg Tcsaxi790 Mg PO DAILY 12/12/16 Cyanocobalamin (Vitamin B12)500 Mcg Tablet1,000 Mcg PO DAILY 12/12/16 Tamsulosin (Flomax)0.4 Mg Capsule0.4 Mg PO DAILY Ref 0 12/12/16 Omeprazole Magnesium (Prilosec Otc)20 Mg Tablet.dr20 Mg PO DAILY #1 PKG Ref 0 12/12/16 Nitroglycerin SL 0.4 Mg Tab.subl0.4 Mg SL 12/12/16 Multivitamin (Multi Vitamin Daily)1 Each Tablet1 Each PO DAILY 30 Days Ref 0 12/12/16 Metoprolol Succinate ER 50 Mg Tab.er.24h50 Mg PO BID Ref 0 12/12/16 Lisinopril 5 Mg Tablet5 Mg PO DAILY #30 TABLET Ref 0 12/12/16 Atorvastatin (Lipitor)80 Mg Zaxmuv97 Mg PO DAILY Ref 0 12/12/16 Levothyroxine (Levoxyl)75 Mcg Omvfwv62 Mcg PO DAILY Ref 0 12/12/16 Furosemide (Lasix)20 Mg Glmlng51 Mg PO DAILY 30 Days Ref 0 12/12/16 Ferrous Sulfate (Iron)325 Mg Capsule.er325 Mg PO DAILY 12/12/16 Hydrocodone-Acetaminophen 5-325 mg 1 Each Tablet1 Tablet PO Q4H PRN For Pain Ref 0 12/12/16 Amlodipine 10 Mg Mwnusv28 Mg PO DAILY Ref 0 12/12/16 Discontinued Reported Medications Morphine Sulfate Oral Soln 10 Mg/5 Ml Lolxogly91 Mg PO QID PRN For Pain 12/13/16 Hydrocodone-Acetaminophen 5-325 mg 1 Each Tablet1 Tablet PO Q4H PRN For Pain Ref 0 12/13/16 History History of ENT Problems?: Yes HEENT History: Positive for:: Dysphagia Hearing Problem (AMBLER) Denies:: Cataracts Sinus Problem (drains in cold weather) Hx of Heart Problems?: Yes Cardiovascular History: Positive for:: Atrial Fibrillation (HX PAF) Cardiac Surgery (DOUBLE BYPASS-12/2002; heart cath 07/2013,STENT PLACEMENT) Chest Pain Coronary Artery Disease Hypertension (HYPERLIPIDEMIA) Irregular Heartbeat (EPISODES OF AFIB/SYNCOPE-ABLATION POSTPONED DUE TO PLANNED COLECTOMY) Pacemaker (S/P 12/2014) Peripheral Vascular (S/P LT CAROTID ENDARTERECTOMY) Valvular Heart 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 NOTE/PFT 10/2015 SHOW POSS EMPHYSEMA/MOD. OBSTRUCTIVE DISEASE) Emphysema Pneumonia (HX OF) Denies:: Asthma Chest Surgery Dyspnea Hemoptysis Tuberculosis Use of C-PAP Machine Hx Neurologic Problems?: No Neurological History: Positive for:: Dizziness Denies:: Alzheimer's Disease CVA (hx CEA) Dementia Headaches Parkinson's Disease Seizures Hx of GI Problems?: Yes Gastrointestinal History: Positive for:: Gastroesphageal Reflux (HX GASTRITIS) Heartburn Rectal Bleeding (HX COLON POLYPS) Denies:: Cirrhosis Diverticulitis Gastrointestinal Bleeding Hepatitis Hiatal Hernia Other GI Pertinent History: CECUM MASS=CURRENT PROBLEM Hx of Problems?: No Genitourinary History: Denies:: HX of Hemodialysis Kidney Stones Urinary Tract Infection HX of Peritoneal Dialysis: No Male Hx: Denies:: Prostate Problems Scrotal Mass Testicular Surgery Skin History: Positive for:: History Skin Disorders? (dry hand - left fungal fingernails S/P BCCEXC-NOSE,SCC EXC LT EAR) Denies:: Pressure Ulcers Hx Musculoskeletal Problems?: Yes Musculoskeletal History: Positive for:: Back Injury Denies:: Joint Replacement Musculoskeletal Trauma Hx of Psycho/Social Problems?: No Psycho Social History: Positive for:: Anxiety Hx Depression Denies:: Bipolar Disorder Suicide Attempt Hx Surgeries?: Yes (CABG,MULT. HEART CATHS/STENTING,PACEMAKER,LT CEA,EXC SKIN CA'S) Hx Any Other Health Problems?: Yes Other History: Positive for:: Cancer ([id number],BASAL CELL CA NOSE,SQUAMOUS CELL CA-LT EAR) Hospitalization (AFIB-2013 ) Thyroid Disease Denies:: Endocrine Disease History Blood Transfusions: Denies:: Blood Transfuse Reaction Blood Transfusions Hx Diabetes: No Hx Alcohol Use: YesAlcoholic Drinks Per Day: 1-2/WEEKHx Substance Use: No Smoking Status: Former Smoker Have You Smoked inLast 12 mo: No Stop/Bang S-Snoring: Do You Snore Loudly: No T-Tired: feel tired, fatigued: Yes O-Obsered: Observed not breath: No P-Blood Pressure: treated: Yes B- Body Mass Index > 35 kg/m2: No A- Age over 50: Yes N- Neck Large Circumference: No G- Gender Male: Yes MILLI Total Score: 4 Risk Assessment Category Category 1A: Patient has history of documented sleep apnea, and HAS NOT received any narcotic, sedative or anesthesia administration during this stay. Category 1B: Patient has history of documented sleep apnea, and HAS received any narcotic , sedative or anesthesia administration during this stay Category 2: Patient has SUSPECTED Obstructive Sleep Apnea, and HAS received any narcotic , sedative or anesthesia administration during this stay. Category 3: Patient has SUSPECTED Obstructive Sleep Apnea and HAS NOT received narcotic, sedative or anesthesia administration during this stay. Category 4: Outpatient in Procedural Areas with known sleep apnea or who screen positive for High Risk via the STOP/BANG questionnaire. Exam Exam General Appearance: Alert, Oriented X3, Cooperative, No Acute Distress HEENT/AIRWAY: MP 2, Neck Movement (FROM) Lungs: Clear to Auscultation, Diminished Heart: Other (Irregularly irregular) Plan Impression Patient chart reviewed, patient interviewed and anesthestic plan with risks, benefits, and alternatives discussed, and informed consent obtained. NPO Status: > 2 hours ASA Physical Status: ASA4 Life Threatening (pacemaker, cancer with partial small bowel obstruction, COPD, severe cancer pain) Anesthetic Support Modalities: Arterial Line (right radial arterial line risks/ benefits discussed, AQA, consent signed.), Central Line (possible central line discussed ) Anesthetic Plan: GA Bene/Risks/Altern/Consents: Yes HP Complete Prior to Induction: Yes Other The patient has significant comorbidities making the likelihood of intraoperative/postoperative complications extremely high. I had a very long conversation with the family and showed them the NSQIP surgical risk calculator. The risk of serious complications is 19.1%, any complication 22%, and 2%. The predicated length of hospital stay according to NSQIP is 7 days. I discussed the very real possibility of postoperative intubation in the ICU as well as central line, pressors, blood products, cardiac arrest, pulmonary disfunction, DVT/PE, stroke and significant postoperative pain. The patient's , daughter and granddaughter were present. The patient reported that he couldn't continue to live like he's living right now and had to do something. He said he would rather have surgery right now and , than not have surgery. I had a long discussion with Dr. Duarte about the risks/benefits of surgery and Dr. Duarte wanted to proceed. Chiki Gabriel MD Dec 25, 2016 09:30
[2016-12-25] MEDS ORDERED: EPHEDrine Sulfate 50 mg/mL Inj IVPUSH PRN (12:25)
[2016-12-25] MEDS ORDERED: Phenylephrine 10,000 mCg/mL Inj IVPUSH PRN (12:25)
[2016-12-25] MEDS ORDERED: fentaNYL-PF 50 mCg/mL 2 mL Inj IVPUSH PRN (12:25)
[2016-12-25] MEDS ORDERED: Labetalol 5 mg/mL 4 mL Inj IV PRN (12:25)
[2016-12-25] MEDS ORDERED: Atropine 0.4 mg/mL Inj IVPUSH PRN (12:25)
[2016-12-25] MEDS ORDERED: Ondansetron 2 mg/mL 2 mL Inj IVPUSH PRN ×3 (12:25→17:25)
[2016-12-25] MEDS ORDERED: HYDROmorphone 1 mg/mL Inj IVPUSH PRN ×3 (12:25→19:30)
[2016-12-25] MEDS: Dextrose 5% Lactated Ringer's 1,000 ML IV SCH (15:40)
[2016-12-25] MEDS ORDERED: Phenylephrine/NS-PF 100 mCg/mL 5 mL Syringe IVPUSH ONE (16:09)
[2016-12-25 16:22] LABS: BASOPHILS % (AUTO) 0.1 % (0-3); EOSINOPHILS % (AUTO) 0.1 % (0-5); MONOCYTES % (AUTO) 5.7 % (4-12); Mean Corpuscular Hemoglobin 28.1 pg (27.0-35.0); Mean Corpuscular Volume 89.3 fL (81-100); NEUTROPHILS % (AUTO) 89.4 % (40-74); Platelet Count 389 bil/L (150-400)
--- NOTE | 2016-12-25 16:28 | OP ---
[address] [address] OPERATIVE REPORT PATIENT: CONOR BULLOCK : 1935 MR#: [id number] ADMIT: 12/25/2016 JOB ID: [id number] DATE OF SURGERY: 12/25/2016 ANESTHESIA: General. PREOPERATIVE DIAGNOSIS(ES): Malignant neoplasm of the ascending colon. POSTOPERATIVE DIAGNOSIS(ES): Locally unresectable malignant neoplasm of the ascending colon. OPERATIONS: Palliative laparoscopic right colectomy with intracorporeal anastomosis (R2 resection).#22 Modifier is billed due to increased time and equipment utilized because of the extent of the malignancy SURGEON: Dr. Smith Duarte. CONTACT CENTER ANALYST: Jose Perry PA-C (the gallery assistant was required for the safe and timely completion of the case). COMPLICATIONS: None. ESTIMATED BLOOD LOSS: 20 mL. CONDITION: Satisfactory. SPECIMEN: Ascending and proximal transverse colon. FINDINGS: The ascending mesocolon and proximal transverse medial colon was completely replaced by tumor which seemed to be extending down into the pancreas. Dr. Jeni aMcias came into the case midway for a second opinion confirming that this was unresectable. Given that the patient was near obstructive, a palliative resection was performed with intraportal anastomosis. INDICATIONS/SIGNIFICANT HISTORY: The patient is an 81-year-old man with multiple medical comorbidities who over the past two months has been experiencing severe back and abdominal pain accompanied by a 15 pound unintentional weight loss. On December 07, he presented to the emergency department with this complaint. A CT scan demonstrated prominence cecal and right colonic wall thickening with adjacent fat stranding. A colonoscopy was performed on December 13 and biopsies were taken. The pathology showed malignancy but did not have the typical appearance for colon cancer. He was referred to hi, and at that time, he was doing very poorly with terrible pain and poor p.o. intake. This was last week. Planned on a semi-urgent right colectomy. He was on Coumadin and, therefore, we had to wait a few days. OPERATIVE TECHNIQUE: The patient was taken to the operating room and placed in the supine position. General anesthesia was administered. Preoperative antibiotics were given. Neely catheter was placed. The abdomen was prepped and draped in a standard surgical fashion and a procedural pause performed. He had received subcu heparin. He had been on a Lovenox bridge for his anticoagulation and had received antibiotic mechanical bowel prep the night before. After performing a procedure port, entry was gained to the abdomen through this infraumbilical incision using a 12 mm Optiview trocar. Pneumoperitoneum was achieved without complication. A second 12 mm port was placed in the left lower abdomen with a 5 mm port placed in the left upper abdomen and one in the lower midline. The abdomen was inspected. There was no evidence of metastatic disease. I typically performed a medial to lateral dissection. I went to the root of the ascending mesocolon and this was completely replaced by tumor. At this point, it was not clear to me that this was unresectable. I then elected to perform an inferior to superior, lateral to medial dissection. This was begun. I was able to be get in the appropriate plane and then elevate the involved mesentery off the retroperitoneum. I was able to walk all the way up and around the hepatic flexure and continued to work medially. At one point, it became apparent that this was quite adherent to the duodenum. I then would gently tease it off, but then had a small serosal tear. I then went up to the transverse colon and decided to try and work laterally from there. A small window was made in the mesocolon and the transverse colon was transected with a MOUSTAPHA 60 blue load. I then worked down using an energy device to try and get to the appropriate plane. At this point, however, it became increasingly clear that there was tumor there as well extending across to the area of the pancreas. I then turned my attention down to the terminal ileum. I transected this with a MOUSTAPHA 60 blue load and continued to take the mesentery towards the root. I then elected to make a small Pfannenstiel incision and inserted a hand port. Using the hand, I palpated the tumor and it became apparent that this was invading down into the duodenum with firm tumor extending over past the ligament of Treitz. I had Dr. Jeni Macias come in and she also placed her hand in the abdomen and confirmed my findings, agreeing that this was unresectable. At this point, I elected to use the LigaSure device and divide the mesocolon along the edge of the colon to remove the colon. A couple times this involved transecting solid tumor. After completely freeing the colon, I removed this through the small Pfannenstiel incision. I then used the argon beam industrial workers laparoscopically to coagulate the cut tumor surface. I then formed an intracorporeal isoperistaltic unir-ew-[id number] functional end-to-end anastomosis using a MOUSTAPHA 60. The common enterotomy was closed using a 3-0 Vicryl V lock suture in a single layer. The anastomosis appeared widely patent. In creating the anastomosis, there was healthy bleeding from both the terminal ileum and the transverse colon. The abdomen was then irrigated and found to be completely hemostatic. A bilateral tap block using liposomal bupivacaine was placed under laparoscopic visualization. I then removed my ports. The 12 mm port site fascia was closed using 0 PDS suture. The fascia was closed with 0 PDS. All skin incisions were closed using 4-0 Monocryl. Patient tolerated the procedure well. EMBER
[2016-12-25] MEDS: Phenylephrine 20 mg/250 mL D5W IV SCH ×2 (16:40)
--- NOTE | 2016-12-25 18:15 | PCM.ANEP1 ---
Post Anesthesia Phase 1 PACU Phase 1 Assessment Vital Signs Vital Signs Date Time Temp Pulse Resp B/P Pulse Ox O2 Delivery O2 Flow Rate FiO2 12/25/16 17:15 70 17 125/55 93 Non-Rebreather 10 12/25/16 17:00 91 18 119/50 92 Non-Rebreather 10 12/25/16 16:45 109 19 98/43 96 Non-Rebreather 10 12/25/16 16:30 85 22 105/55 95 Non-Rebreather 10 12/25/16 16:16 88 23 89/45 94 Non-Rebreather 15 12/25/16 16:07 93 20 71/49 96 Non-Rebreather 12/25/16 16:05 89 24 89/40 90 Simple Mask 8 12/25/16 16:00 81 16 96/57 91 Simple Mask 8 12/25/16 15:55 36.0 74 26 96/57 92 Simple Mask 8 Anesthetic Administered: GA Level of Alertness: Awake, talking SARKAR's with Equal Strength: Yes Pain: Yes (given pain medications) Pain Scale Score: 5 Airway Device: Oralpharangeal Airway Oxygen Delivery: Simple Mask Lungs: Clear to Auscultation, Diminished Dermatome Level: Full Sensation Summary Runs of v tach in recovery. Transferred to the ICU. Chiki Gabriel MD Dec 25, 2016 18:15
--- NOTE | 2016-12-25 18:16 | PCM.ANEP2 ---
Post Anesthesia Evaluation ASA/CMS Post Anesthesia VS in Patient's Normal Range?: Yes Resp Stable; Airway Patent?: Yes CV Function & Hydration Stable: Yes Mental Status Recovered?: Yes Pain control Satisfactory?: Yes N/V Control Satisfactory?: Yes Chiki Gabriel MD Dec 25, 2016 18:15
--- NOTE | 2016-12-25 18:51 | PCM.ADCARE ---
Advance Care Planning Note Purpose of Encounter: Active Diagnoses: Locally unresectable malignant neoplasm of the ascending colon. Paroxysmal Atrial fibrillation These active diagnoses are sufficient risk that focused discussion on advance car planning is indicated in order to allow the patient to thoughtfully consider personal goals of care and if situations arise that prevent the ability to personally give input to insure appropriate representation of their personal desires through documentation or informed surrogate decision makers Parties in Attendance: Patient, me Decisional Capacity: Good Plan: I reviewed his current diagnosis of Locally unresectable malignant neoplasm of the ascending colon as well as Atrial fibrillation he desires for ongoing aggressive care, including potential intubation and mechanical ventilation as well as CPR. Especially the fact of his new diagnosis he needs time to think things through with his family and wants to discuss his treatment options with Oncology Also discussed who would speak on his behalf should she be unable to do so, he states his will be his proxy. Will also consider a Palliative care consult CODE STATUS: Full code Time Spent Adv.Care Planning: Total time spent [id number] in education and discussion directly related to Advance Care Plannin minutes Dustin Bobby MD Dec 25, 2016 18:51
--- NOTE | 2016-12-25 19:25 | NUR ---
Post PACU Patient arrived form recovery room to CCU after 1630 today. Patient was drowsy and heart of hearing but able to answer questions appropriately. He was oriented to place, persona and date. Initially patient denied having any pain within about 40min patient stated pain 5/10- medicated with morphine 2mf IV at the time. In about 20-30 min patient stated increase of pain to 7/10- medicated with Dilaudid 1mg IV- patient stated that his pain started to decrease gradually to 1-2/10. Abdominal dressings X4 remained clean dry and intact. Neely to gravity drain with 50ml of light michel urine output. Patient became hypertensive during the period of increased pain with SBP in 160-175 ranges- BP improved after pain was controlled- was made aware of findings- ordered Dilaudid RESEARCH METHODOLOGIST to be started report was given to the receiving RN.
[2016-12-25] MEDS ORDERED: HYDROmorphone PCA 0.2 mg/mL 30 mL Inj - Over 64 Yrs/SA IV PRN (19:30)
--- NOTE | 2016-12-25 19:43 | PCM.HPMED ---
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 Patient was diagnosed with cecal neoplasm, almost certainly representing a malignancy. The patient tells me that for the past 2 months he has been experiencing terrible back, abdominal, and testicular pain. This is been accompanied by a 10-15 pound unintentional weight loss. He is also noted blood in his stool. On December 07 he presented to the emergency department with this complaint and a CT scan demonstrated prominent cecal and right colonic wall thickening with adjacent fat stranding. On the the colonoscopy was performed which demonstrated a cecal mass with necrotic tissue and ulceration at the appendiceal orifice. Past medical and surgical history are reviewed and significant for: Cardiac disease status post a two-vessel CABG in 2002 followed by coronary stenting in 2012 was complicated by myocardial infarction. He had a recent negative exercise stress test. He also has atrial fibrillation for which he is scheduled to undergo ablation after colonic procedure He is on Coumadin. He had a left carotid endarterectomy 20 years ago with no subsequent surveillance. He also has a cholesterol, hypertension Dr Long otto contacted me with concerns about Non sustained Ventricular tachycardia after the procedure. Vitals otherwise stable and the concensus is to watch him closely on telemetry overnight Review of Systems: Pertinent positives as noted in HPI. All other systems were reviewed and are negative Allergies Coded Allergies: No Known Allergies (Verified Allergy, Unknown, 12/25/16) Home Medications From Austin BurkDori [phone] 1935 12/18/2016 02:30 PM Page: 10/04 amlodipine 10 mg tablet take 1 tablet by oral route every day hydrocodone 5 mg-acetaminophen 325 mg tablet take 1 tablet by oral route every 4 - 6 hours as needed iron 325 mg (65 mg iron) tablet 1 tablet by mouth once a day Lasix 20 mg tablet take 1 tablet by oral route every day LEVOXYL 75 MCG TABLET TAKE 1 TABLET BY MOUTH EVERY MORNING Lipitor 80 mg tablet take 1 tablet by oral route every day lisinopril 5 mg tablet take 1 tablet by oral route every day Lovenox 80 mg/0.8 mL subcutaneous syringe inject (1MG/KG) by subcutaneous route every 12 hours metoprolol succinate ER 50 mg tablet,extended release 24 hr take 1 tablet by oral route 2 times every day morphine 15 mg immediate release tablet take 1 tablet by oral route every 6 hours as needed multivitamin tablet take 1 tablet by oral route every day with food nitroglycerin 0.[address] 1 tablet under tongue every 5 min for chest pain, call 911 or go to ER if still having pain after 2 pills. Prilosec 20 mg capsule,delayed release take 1 capsule by oral route every day 30 minutes to 1 hour before a meal tamsulosin 0.4 mg capsule take 1 capsule by oral route every day 1/2 hour following the same meal each day Vitamin B-12 1,000 mcg tablet take 1 daily by mouth Vitamin C 500 mg tablet 1 tablet by mouth daily Vitamin D3 2,000 unit tablet 1 tab by mouth daily vitamin E 400 unit capsule take 1 daily by mouth warfarin 4 mg tablet take 1 tablet by oral route on [place], Tu, W, Tr, F, Sa. Take 1/2 tab on M or as directed by your provider. PMH SK (seborrheic keratosis) Anemia Benign neoplasm of colon Atrophic gastritis Syncope Gastroesophageal reflux disease Hypothyroidism Lymphoma Basal cell carcinoma of [place] SSS (sick sinus syndrome) Paroxysmal atrial fibrillation . Surgical History CABG 2 vessels [BIRCH-LAD (found to be occluded by 07/2013 cath), SVG-OM (patent by 07/2013 cath)] - 2002 Colonoscopy Pacemaker Left carotid endarterectomy Family History No family history of cardiac disease Brother had Lymphoma Mother had Colon cancer Social History Hx Alcohol Use: Yes Alcoholic Drinks Per Day: 1-2/WEEK Hx Substance Use: No Hx Tobacco Use: Yes Smoking Status: Former Smoker Living Arrangement: with Family Exam Vital Signs Vital Sign - Last Date Time Temp Pulse Resp B/P Pulse Ox O2 Delivery O2 Flow Rate FiO2 12/25/16 16:16 88 23 89/45 94 Non-Rebreather 15 12/25/16 15:55 36.0 Exam General: Alert, Oriented X3, Cooperative, No acute Distress Eyes: PERRLA, Scleral Anicteric Mouth: Mouth Normal, Mucous Membranes Moist/[place] Neck: Supple, no Thyromegaly, trachea central. Chest & Lungs: Clear to auscultation & percussion, No adventitious breath sounds, no crackles, no wheeze Cardiovascular: Normal S1, Normal S2, No Murmurs/Rubs/Gallops, irregularly irregular (No JVD, no peripheral edema) Pulses: Radial (present and equal), Dorsalis Pedi (present and equal) Abdomen: Soft, diffuse tender, Non-distended, Normoactive bowel tones. + dressing over laparoscopic sites no bleeding noted Musculoskeletal: Unremarkable. Normal range of motion, no swollen or erythematous joints Extremities: No edema, no cyanosis, no clubbing. Skin: No rashes. Warm and dry, no erythematous areas Neurological: Grossly neurologically intact, Normal Speech, Sensation Intact Lymphatic: Lymph nodes Cervical and Axillary not palpable. Lab and Diagnostics Labs Laboratory Tests Test 12/25/16 10:30 12/25/16 15:52 12/25/16 16:00 White Blood Count 12.2th/mm3 (3.8-10.1) 11.8th/mm3 (3.8-10.1) Red Blood Count 3.85mil/mm3 (4.40-5.80) 3.66mil/mm3 (4.40-5.80) Hemoglobin 10.9g/dL (13.8-17.2) 10.3g/dL (13.8-17.2) Hematocrit 34.2% (41.0-50.0) 32.7% (41.0-50.0) Mean Corpuscular Volume 88.8fL (81-100) 89.3fL (81-100) Mean Corpuscular Hemoglobin 28.3pg (27.0-35.0) 28.1pg (27.0-35.0) Mean Corpuscular Hemoglobin Concent 31.9% (32.0-37.0) 31.5% (32.0-37.0) Red Cell Distribution Width 14.2% (12.3-15.4) 14.6% (12.3-15.4) Platelet Count 399bil/L (150-400) 389bil/L (150-400) Prothrombin Time 13.6sec (8.1-12.5) Prothromb Time International Ratio 1.26ratio Sodium Level 136mEq/L (134-144) 136mEq/L (134-144) Potassium Level 4.0mEq/L (3.5-5.2) 4.0mEq/L (3.5-5.2) Chloride Level 96mEq/L (97-108) 97mEq/L (97-108) Carbon Dioxide Level 22mmol/L (18-29) 23mmol/L (18-29) Blood Urea Nitrogen 19mg/dL (8-27) 20mg/dL (8-27) Creatinine 0.73mg/dL (0.76-1.27) 0.86mg/dL (0.76-1.27) Estimat Glomerular Filtration Rate 109mL/min (>59) 90mL/min (>59) Glucose Level 111mg/dL (60-99) 168mg/dL (60-99) Calcium Level 8.9mg/dL (8.5-10.1) 8.5mg/dL (8.5-10.1) Total Bilirubin 0.3mg/dL (0.0-1.2) 0.3mg/dL (0.0-1.2) Aspartate Amino Transf (AST/SGOT) 72U/L (0-50) 61U/L (0-50) Alanine Aminotransferase (ALT/SGPT) 39U/L (0-44) 34U/L (0-44) Alkaline Phosphatase 120U/L (25-160) 111U/L (25-160) Total Protein 5.9g/dL (6.4-8.4) 5.3g/dL (6.4-8.4) Albumin 3.4g/dL (3.4-5.0) 3.0g/dL (3.4-5.0) Hold Urine Received (Received) Neutrophils (%) (Auto) 89.4% (40-74) Lymphocytes (%) (Auto) 4.1% (14-46) Monocytes (%) (Auto) 5.7% (4-12) Eosinophils (%) (Auto) 0.1% (0-5) Basophils (%) (Auto) 0.1% (0-3) Result Diagram: 12/25/16 1600 12/25/16 1600 Assessment & Plan Mr Vergara is an 81-year-old man with Paroxysmal A fib, Coronary artery disease who was 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 Non sustained Ventricular tachycardia. Present on admission Evaluated to underlying post operative ischemia or myocardial infarction. Patient is scheduled to have an ablation procedure soon. - monitor on telemetry - consider a Amiodarone drip with persistent - monitor electrolytes with Potassium and Magnesium - consider contacting Dr Doyle in the morning 2. 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 Present on admission s/p laparoscopic right colectomy with intracorporeal anastomosis - management as per Dr Duarte and surgical team 3 Paroxysmal Atrial Fibrillation - monitor on telemetry - continue to hold Coumadin tonight 4. Coronary artery disease s/p CABG Patient denies any anginal symptoms prior to surgery and currently does not have any chest pain. - trending troponin - continuing Lipitor 80 mg daily 5. Chronic Anemia. Normocytic No signs of active bleeding. Patient taking Iron supplements as outpatient, chronic anemia likely due to his current colon malignancy - monitoring H/H with plans to transfuse if Hgb < 8 6. Hypothyroidism - continue Synthroid 75 mcg daily - Acetaminophen as needed for mild pain/fever/headache - Bowel regimen as needed - Antiemetic as needed Patient admitted under inpatient status with expected length of stay > 2 midnights for severity of present symptoms, complexities of treatment plan and risk for adverse event . Resuscitation Status: CPR: Attempt Resuscitation Dustin Bobby MD Dec 25, 2016 17:27
[2016-12-25] MEDS: MeTOProlol XL 50 mg ER24 Tablet PO SCH (21:17)
[2016-12-25] MEDS: Acetaminophen IV 1,000 MG in IV Premix 1 EACH IV SCH (21:17)
[2016-12-26] VITALS (13 sets, daily range): BP systolic 103–135; BP diastolic 40–72; PULSE 57–106; RESP 16–22; O2SAT 90–98
[2016-12-26] MEDS: Phenylephrine 20 mg/250 mL D5W IV SCH ×6 (00:24→17:34)
[2016-12-26] MEDS: Heparin 5,000 Unit/mL Inj SUBQ SCH ×3 (00:48→16:18)
[2016-12-26] MEDS: Acetaminophen IV 1,000 MG in IV Premix 1 EACH IV SCH ×4 (03:47→21:04)
[2016-12-26 04:03] LABS: BASOPHILS % (AUTO) 0.1 % (0-3); EOSINOPHILS % (AUTO) 0 % (0-5); MONOCYTES % (AUTO) 6.6 % (4-12); Mean Corpuscular Hemoglobin 28.7 pg (27.0-35.0); Mean Corpuscular Volume 87.9 fL (81-100); NEUTROPHILS % (AUTO) 90.2 % (40-74); Platelet Count 400 bil/L (150-400)
[2016-12-26] MEDS: Dextrose 5% Lactated Ringer's 1,000 ML IV SCH ×2 (04:22→16:40)
--- NOTE | 2016-12-26 04:57 | NUR ---
Pain/Cardiac/Activity P: Pt c/o 5/10 abd surgical pain. I: started critical care clinical nurse specialist dilaudid, loading/bolus 0.1mg given, pt also on tylenol IV rtc, instructed and reinforced critical care clinical nurse specialist use. E: pain down to 3/10 which is comfortable level, verbalized understanding to critical care clinical nurse specialist use, pt forgetful needs frequent reinforcement. BP stable throughout the shift. Activity Pt assisting in turns/repositioning, able to scoot self up in bed independently, fairly tolerated bed mobility.
[2016-12-26] MEDS: Pantoprazole 40 mg ER24 Tablet PO SCH ×2 (06:30→09:08)
[2016-12-26] MEDS: MetoCLOpramide 5 mg/mL 2 mL Inj IVPUSH PRN ×2 (06:58→09:57)
--- NOTE | 2016-12-26 08:28 | PROG NOTE ---
[address] [address] PROGRESS NOTE PATIENT: CONOR BULLOCK : 1935 MR#: [id number] ADMIT: 12/25/2016 JOB ID: [id number] DATE: 12/26/2016 SUBJECTIVE: The patient is seen postoperative day one from a laparoscopic right colectomy for locally unresectable colon cancer. Yesterday after the surgery, the patient was transferred to ICU given runs of ventricular tachycardia. He has a known significant cardiac history and was actually scheduled for an ablation yesterday until this new diagnosis of colon cancer arose. This morning he tells me that his back pain which had been his chief complaint prior to surgery is resolved. He is complaining of some incisional pain. He has remained afebrile overnight. This morning, he is hemodynamically normal with a heart rate of 82 beats per minute, blood pressure 130/49, satting 95% on 4 L nasal cannula with a respiratory rate of 20 breaths per minute. In general, he appears mildly uncomfortable but in no acute distress. His abdomen is soft, a little bit distended and tender around the incisions. Dressings clean, dry and intact. His white blood cell count is up to 16.5 today from 11.8 yesterday afternoon. His hematocrit is stable at 34. His platelet count is 400. His creatinine is 0.68. ASSESSMENT AND PLAN: This is an 81-year-old man with multiple medical comorbidities, postop day one from what turned out to be a palliative laparoscopic right colectomy for a locally advanced colon cancer. I discussed the operative findings with the patient. I iterated that our goal is to focus on getting through this hospitalization and recovering. I am going to have palliative care as well as oncology consult with him hopefully during this stay. I will plan on resuming his lovenox tomorrow if his h&h remains stable. EMBER
[2016-12-26] MEDS: Insulin Human REGular 300 Unit/3 mL Inj SUBQ SCH ×3 (08:29→20:21)
[2016-12-26] MEDS: MeTOProlol XL 50 mg ER24 Tablet PO SCH (09:10)
[2016-12-26] MEDS ORDERED: HYDROmorphone 1 mg/mL Inj IVPUSH PRN (11:00)
--- NOTE | 2016-12-26 11:36 | NUR ---
Palliative Care Palliative Care received order from Dr Adamaris Duarte (surgery) 12/25/16 (late in day) to assist with goals of care. 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 Today 12/26 is postop day one from what turned out to be a palliative laparoscopic R colectomy for a locally advanced colon cancer. Patient also developed post operative arrhythmia with ventricular tachycardia. Jazzy Ortizs () [phone] Noelle Emily (daughter) [phone], Palliative Care to follow. Sandrine Lacy
[2016-12-26] MEDS ORDERED: Promethazine Inj 12.5 MG in 0.9% Sodium Chloride 50 ML IV PRN (11:50)
[2016-12-26] MEDS ORDERED: Promethazine Inj 25 MG in 0.9% Sodium Chloride 50 ML IV PRN (11:55)
[2016-12-26] MEDS: Polyethylene Glycol (PEG) 17 Gm Powder PO SCH (12:00)
--- NOTE | 2016-12-26 12:05 | PCM.CONPAL ---
Date of Service Dec 26, 2016 Date of Hospital Admission: Dec 25, 2016 at 17:19 Date of Palliative Consult: Dec 26, 2016 Requesting Provider: Smith Duarte MD Reason Palliative Care Consult: Goals of Care Discussion Hospital Unit @time of consult: Critical Care Palliative Care Recommendation Summary of palliative recommendations: -Symptom management (Pain/other) Nausea-proving to be a challenge to control. Pain-back pain gone which I believe is what Dr. Duarte's discussion about celiac block was about and reviewed with the family that at this time that is not necessary. Family will benefit from well coordinated communications due to the acuteness of diagnosis and with their hope for christie healing. -DPOA/Advanced Directives/POLST-Full Code at this time. -Family/emotional support-strong support within family -Spiritual support-will need this going forward. They have informed their christie community Additional Medical Diagnoses with primary management by Hospitalist team include : Problems: Resuscitation Status Resuscitation Status: CPR: Attempt Resuscitation Pt History History of Present Illness Surgeon: Dr. Smith Duarte PCP: Dr. Hermilo Hollis PALLIATIVE CONSULT NOTE Reason for consult: goals of care and symptom management. 81 yo male patient with hx of colonic polyps (tubular adenomas) on colonoscopy in 2014 who began developing increasing abd pain, back pain and testicular pain. Evaluation with CT scan noted mass in the ascending colon. 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 He underwent palliative resection by Dr. Duarte yesterday and today primary issues are nausea and pain. At surgery there was note of extension into the pancreas although pancreas was read as normal on CT. There was also note of nearly entire replacement of his mesentery with tumor and note of extension to the pancreas. While the report defines this as a cecal malignancy the family is understands that it is a pancreatic tumor. This is a factor for them due to their moravian belief in prayer-to know the source of the problem. His back pain has resolved since surgery but he has incisional pain and general abd pain. He also has nausea and feels that it is worse with the hydromorphone TUBE INSPECTOR. He had been on MS IR 15 mg about Q 4 hour before admission due to the severity of his back pain and that did not cause nausea. He has a distant hx of nonhodgkins lymphoma in 1981.Hx of ASCAD s/p CABG in 2002 , afib and pacemaker for SSS and ASPVD with L carotid endarterectomy. Exsmoker modest ETOH FMHX [id number] CA, Bro lymphoma Past Medical History Significant PMH Noted: Hypothyroidism Hx BCCA L ear hx lymphoma- nonhodgkins 1982 Hx CAD s/p CABG 2002 Afib SSS-s/p pacemaker PVD with L CEA hx T12 compression fx Social History Occupation: retired Living Situation: lives with Spiritual Support Spiritual Support strong Pentecostalism belief Responsive Patient Symptoms Pain (current): Moderate Pain (maximium): Severe *Requires 72 Hour Followup Tiredness/Fatigue: Moderate Nausea: Severe *Requires 72 Hour Followup Anxiety: Moderate Drowsiness/Sleepiness: Moderate Shortness of Breath: None Palliative Performance Scale Performance Scale: 100% Allergy Allergies Reviewed: Yes Medications Current Medications: Current Medications Lactated Ringer's 1,000 ml @ 120 mls/hr Q8H20M IV Last administered on 11:32; Start 12/25/16 at 05:00; Stop 12/25/16 at 13:19; Status DC Metronidazole/ Sodium Chloride/ Premix 100 ml @ 100 mls/hr PREOP IV Last administered on 12/25/16 11:30; Start 12/25/16 at 06:00; Stop 12/25/16 at 06:59 ; Status DC Heparin Sodium (Porcine) 5,000 unit PRN PRN SUBQ Last administered on 11:38; Admin Dose 5,000 UNIT; Start 12/25/16 at 09:40; Stop 12/25/16 at 23: 59; Status DC Furosemide 20 mg DAILY PO Last administered on 12/26/16 09:10; Admin Dose 20 MG ; Start 12/26/16 at 08:30 Levothyroxine Sodium 75 mcg 0630 PO Last administered on 12/26/16 05:52; Admin Dose 75 MCG; Start 12/26/16 at 06:30 Metoprolol Succinate 50 mg BID PO Last administered on 12/26/16 09:10; Admin Dose 50 MG; Start 12/25/16 at 20:30 Tamsulosin HCl 0.4 mg DAILY PO; Start 12/26/16 at 08:30 Amlodipine Besylate 10 mg DAILY PO Last administered on 12/26/16 09:10; Admin Dose 10 MG; Start 12/26/16 at 08:30 Atorvastatin Calcium 40 mg HS PO; Start 12/26/16 at 21:00 Pantoprazole 40 mg 40 mg 0630 PO Last administered on 12/26/16 09:08; Admin Dose 40 MG; Start 12/26/16 at 06:30 Lactated Ringer's 1,000 ml @ 120 mls/hr Q8H20M IV Last administered on 17:00; Start 12/25/16 at 12:23; Stop 12/25/16 at 19:27; Status DC Ephedrine Systolic SBP below 90 ... Q2MIN PRN IVPUSH; Start 12/25/16 at 12:25; Stop 12/25/16 at 19:36; Status DC Phenylephrine HCl Systolic BP below 90 ... ONCE PRN IVPUSH; Start 12/25/16 at 12:25; Stop 12/25/16 at 19:36; Status DC Lactated Ringer's 500 ml @ 0 mls/hr Q0M PRN IV; Start 12/25/16 at 12:23; Stop at 19:27; Status DC Labetalol HCl 5 mg Q10MIN PRN IV; Start 12/25/16 at 12:25; Stop 12/25/16 at 19: 36; Status DC Atropine Sulfate 0.4 mg PRN PRN IVPUSH; Start 12/25/16 at 12:25; Stop 12/25/16 at 19:36; Status DC Fentanyl Citrate 25-50 mcg IV every 5 min p... Q5MIN PRN IVPUSH; Start at 12:25; Stop 12/25/16 at 19:36; Status DC Morphine Sulfate 1-4 mg IV every 5 min p... Q5MIN PRN IVPUSH; Start 12/25/16 at 12:25; Stop 12/25/16 at 19:36; Status DC Hydromorphone HCl 0.2-1 mg IV every 5 min p... Q5MIN PRN IVPUSH Last administered on 12/25/16 18:33; Admin Dose 1 MG; Start 12/25/16 at 12:25; Stop 12/25/16 at 19:37; Status DC Ondansetron HCl 4-8 mg IV every 4 hours ... Q4H PRN IVPUSH; Start 12/25/16 at 12:25; Stop 12/25/16 at 19:36; Status DC Midazolam HCl 0.5-1 mg IV every 5 min p... Q5MIN PRN IVPUSH; Start 12/25/16 at 12:25; Stop 12/25/16 at 19:36; Status DC Heparin Sodium (Porcine) 5000 unit 5,000 unit Q8 SUBQ Last administered on 09:08; Admin Dose 5,000 UNIT; Start 12/26/16 at 00:30 Dextrose/Lactated Ringer's 1,000 ml @ 80 mls/hr [id number] IV Last administered on 12/26/16 04:22; Admin Dose 80 MLS/HR; Start 12/25/16 at 15:40 Acetaminophen/ Premix 100 ml @ 400 mls/hr Q6 IV Last administered on 12/26/16 08:29; Admin Dose 400 MLS/HR; Start 12/25/16 at 20:30; Stop 12/27/16 at 14:44 Acetaminophen 975 mg Q6 PO; Start 12/27/16 at 20:30 Morphine Sulfate as needed for Severe Pain (7-10 p... Q4H PRN IVPUSH Last administered on 12/25/16 18:00; Admin Dose 2 MG; Start 12/25/16 at 15:40 Ondansetron HCl Start with 4 MG, if ineffect... Q4H PRN IVPUSH Last administered on 12/26/16 05:52; Admin Dose 4 MG; Start 12/25/16 at 15:40 Metoclopramide HCl Start with 5 MG, if ineffect... Q4H PRN IVPUSH Last administered on 12/26/16 09:57; Admin Dose 5 MG; Start 12/25/16 at 15:40 Polyethylene Glycol 17 gm 17 gm NOON PO; Start 12/26/16 at 12:00 Phenylephrine HCl/ Dextrose/Water 252 ml @ 30.42 mls/ hr Q8H18M IV; Start 12/25 at 16:40 Ondansetron HCl 4 to 8 mg Q4H PRN IVPUSH; Start 12/25/16 at 17:25 Al Hydrox/Mg Hydrox/ Simethicone 30 ml 30 ml Q6H PRN PO; Start 12/25/16 at 17: 25 Dextrose/Water 500 ml @ 25 mls/hr Q20H IV; Start 12/25/16 at 19:35 Hydromorphone/ Sodium Chloride Per Protocol PRN PRN IV Last administered on t 19:47; Admin Dose 6 MG; Start 12/25/16 at 19:30 Naloxone HCl 0.04 mg Q1MIN PRN IVPUSH; Start 12/25/16 at 19:30 Hydromorphone HCl 0.5 mg Q1H PRN IVPUSH; Start 12/25/16 at 19:30 Hydromorphone HCl 1 mg Q1H PRN IVPUSH; Start 12/25/16 at 19:30; Stop 12/26/16 at 11:09; Status DC Diphenhydramine HCl 12.5-25 MG Q4H PRN IVPUSH; Start 12/25/16 at 19:30 Insulin Human Regular * Low Dose Insulin Algori... Q6 SUBQ; Start 12/26/16 at 08 :30 Hydromorphone HCl 2 mg 2 mg Q1H PRN IVPUSH; Start 12/26/16 at 11:00 Promethazine HCl 12.5 mg/Sodium Chloride 50.25 ml @ 100.5 mls/ hr Q4H PRN IV; Start 12/26/16 at 11:50 Promethazine HCl/ Sodium Chloride 50.5 ml @ 101 mls/hr Q4H PRN IV; Start 12/26 at 11:55 Scheduled Amlodipine (Amlodipine) 10 Mg Tablet 10 MG PO DAILY Ascorbate Calcium (Vitamin C) 500 Mg Tablet 500 MG PO DAILY Atorvastatin (Lipitor) 80 Mg Tablet 80 MG PO DAILY Cholecalciferol (Vitamin D3) (Vitamin D3) 2,000 Unit Capsule 2,000 UNIT PO DAILY Cyanocobalamin (Vitamin B12) 500 Mcg Tablet 1,000 MCG PO DAILY Ferrous Sulfate (Iron) 325 Mg Capsule.er 325 MG PO DAILY Furosemide (Lasix) 20 Mg Tablet 20 MG PO DAILY Levothyroxine (Levoxyl) 75 Mcg Tablet 75 MCG PO DAILY Lisinopril (Lisinopril) 5 Mg Tablet 5 MG PO DAILY Metoprolol Succinate ER (Metoprolol Succinate ER) 50 Mg Tab.er.24h 50 MG PO BID Multivitamin (Multi Vitamin Daily) 1 Each Tablet 1 EACH PO DAILY Omeprazole Magnesium (Prilosec Otc) 20 Mg Tablet.dr 20 MG PO DAILY Tamsulosin (Flomax) 0.4 Mg Capsule 0.4 MG PO DAILY Vitamin E Mixed (Vitamin E) 400 Unit Capsule 400 UNIT PO DAILY Warfarin Sodium (Warfarin Sodium) 4 Mg Tablet 4 MG PO DAILY Scheduled PRN Hydrocodone-Acetaminophen 5-325 mg (Hydrocodone-Acetaminophen 5-325 mg) 1 Each Tablet 1 TABLET PO Q4H PRN PRN For Pain Morphine Sulfate (Morphine Sulfate) 15 Mg Tablet 15 MG PO Q6H PRN PRN PRN Miscellaneous Medications ([Lovenox Bridging]) Nitroglycerin SL (Nitroglycerin SL) 0.4 Mg Tab.subl 0.4 MG SL Objective Findings Exam Vital Sign - Last Date Time Temp Pulse Resp B/P Pulse Ox O2 Delivery O2 Flow Rate FiO2 12/26/16 07:30 36.8 80 21 123/40 94 OxyMask 4.00 Intake and Output 12/25/16 12/25/16 12/26/16 Cumulative From/Thru 15:00 23:00 07:00 12/24/16 08:22 - 12/26/16 06:07 Intake Total 1150 ml 600 ml 1150 ml 2900 ml Output Total 320 ml 110 ml 450 ml 880 ml Balance 830 ml 490 ml 700 ml 2020 ml Intake Oral 160 ml 160 ml IV Total 1150 ml 600 ml 990 ml 2740 ml Output Urine Total 300 ml 110 ml 450 ml 860 ml Estimated Blood Loss 20 ml 20 ml # Bowel Movements 0 0 General: Alert/Oriented x3, Moderate distress (nausea and pain) HEENT: PERRLA, EOMI, Scleral Anicteric, Mucous Membranes Dry Heart: Dysrhythmia Present Abdomen: Other (post op day 1, had small BM, taking in water PO, having some rectal urgency) Neuro: Cranial Nerve 3-12 Intact, Other (appropriate, good historian, occ drifts to sleep) Lab/Diagnostics Lab and Imaging results reviewed in detail in EMR. Patient/Family Conference Members Present Family Members Present Jazzy, patient, son in law- Jean Pierre, daughter- Medical Team Members Present? [facility] Discussion/Goals of Care Discussion FAMILY UNDERSTANDING OF DISEASE: at bedside. Patient is mild to moderately uncomfortable-hot then cold, wanting to shift in bed, then again, as well as c/ o pain and nausea Family if focused on question of celiac block raised by Dr. Duarte-if the back pain had not resolved. Reviewed usual post op issues- ileus, nausea and pain. Difficult to determine at this point what is post op issues vs tumor issues. He has stopped his hydromorphone TUBE INSPECTOR due to sense it was only making him worse. Family is vigilant. His review need to know as much info as possible so as to know where to direct their prayers for healing. Reviewed need of time to seprate out postop issues from his baseline malignancy issues DISEASE PROGRESSION/EVIDENCE OF DECLINE: very recent diagnosis- still not completely grasping severity of disease. Based on scan to time of surgery- appears to be a very aggressive tumor. SYMPTOM BURDEN: GOALS: His goal is to heal from surgery and have some independence going forward. He has been very active and he hopes he can maintain this. HOPES/WORRIES: FAMILY WISHES/VALUES: Do you want to be told truth about his illness, even if unpleasant? yes Does family want to know prognosis when it can be predicted, to better guide treatment decisions? yes Time spent Total time 60 minutes; >50% face to face with patient and/or family, providing counselling regarding plans and recommendations, and in care coordination with his/her medical teams. I also spent an additional [ ] minutes counseling for advanced care planning with the patient/the patients family/the surrogate decision maker. copies to: Smith Duarte MD; Ehsan Hollis MD, Deborah A MD Dec 26, 2016 12:05 Louise Andres MD Dec 26, 2016 12:05
--- NOTE | 2016-12-26 12:19 | NUR ---
Pain/nausea/transfer Complained of nausea this morning patient was medicated with 5mg Reglan IV patient received 5mg Reglan IV 2h prior given by lieutenant shift supervisor RN- with some but not complete relieve of nausea. Incisional pain was controlled to some degree but was not completely resolved with Dilaudid INFORMATION TECHNOLOGY SECURITY ANALYST- MD was made aware-new orders were received. Patient was seen by Palliative Care MD this morning-new ordered were received. Patient was transferred to [facility]-telemetry status- report was given to the receiving RN at the bedside. Right radial A-line was removed intact this morning.
[2016-12-26] MEDS ORDERED: Haloperidol 5 mg/mL Inj IVPUSH PRN (14:00)
--- NOTE | 2016-12-26 16:58 | NUR ---
Social Work: Initial Assessment Data/Assessment: Per EMR review, pt is an 81 year old male admitted for cecum mass. Pt is Medicare with AARP supplement; pt has no LTC insurance or VA benefits. PCP is Dr. Hermilo Hollis. NOK is Jazzy Vergara, , . Readmit score is moderate, 5/8. EMR reviewed; Palliative care and Oncology have been consulted due to aggressive tumor. Palliative care is holding an extended family care meeting tomorrow to discuss goals of care. Pt expressed that he would like to remain as I as possible moving forward. Pt was previously very active. Pt is currently a 2 person assist and has not been OOB. Pt currently on BIOLOGY ADJUNCT INSTRUCTOR pain pump and remains full code. Per palliative note, this is a recent diagnosis and family is not completely understanding the severity of the disease/tumor. COST ACCOUNTING ANALYST met with pt and family at bedside. Sw and dcp role explained; contact info provided. See initial assessment. Pt and spouse live in [place]. Pt was previous I with all ADLs and used no DME. states pt began to experience weakness several days prior to admission but otherwise was very stable on his feet. Pt was driving prior to onset of weakness. Pt has never had HH or skilled rehab. Plan: [facility]; COST ACCOUNTING ANALYST will await update from Palliative re: goals of care before proceeding with discharge planning. COST ACCOUNTING ANALYST to continue to follow closely. VIVIAN Krishna Addendum: 12/26/16 at 1708 by YESENIA RIDDLE SS Amended: Links added.
[2016-12-26] MEDS: HYDROmorphone PCA 0.2 mg/mL 30 mL Inj IV PRN (17:17)
--- NOTE | 2016-12-26 17:45 | PCM.PNMED ---
Subjective Date of Service Dec 26, 2016 Subjective Mr. Vergara complains of abdominal pain nausea and hunger this morning. He denies any chest pain, shortness of breath, lightheadedness, dizziness, vomiting , diarrhea, any new rashes, swelling or pain in his lower extremities. He was on SUPERVISOR AIRCRAFT MAINTENANCE Dilaudid, however states that it only works for so long and the pain comes back feeling worse. Exam Vital Signs Vital Sign - Last Date Time Temp Pulse Resp B/P Pulse Ox O2 Delivery O2 Flow Rate FiO2 12/26/16 17:19 16 91 12/26/16 17:03 36.7 57 134/61 Nasal Cannula 4.00 Intake and Output 12/25/16 12/25/16 12/26/16 Cumulative From/Thru 15:00 23:00 07:00 12/24/16 08:22 - 12/26/16 06:07 Intake Total 1150 ml 600 ml 1150 ml 2900 ml Output Total 320 ml 110 ml 450 ml 880 ml Balance 830 ml 490 ml 700 ml 2020 ml Intake Oral 160 ml 160 ml IV Total 1150 ml 600 ml 990 ml 2740 ml Output Urine Total 300 ml 110 ml 450 ml 860 ml Estimated Blood Loss 20 ml 20 ml # Bowel Movements 0 0 Exam General: Laying in bed, no apparent distress. Responds appropriately to questioning. AAO3 HEENT: Normocephalic, atraumatic, EOMI grossly, Cardiovascular: Regular rhythm, occasional ectopic beat. no clicks murmurs rubs , peripheral pulses 2/4 equal bilaterally Pulmonary: Clear to auscultation bilaterally, no W/R/R. Abdominal: Soft to palpation, surgical dressings in place. Tender to palpation. Negative rebound. Extremities: No edema appreciated. No tenderness, asymmetry. Neuro: Neurologically grossly intact, strength is equal bilaterally upper and lower extremities. MSK: Able to move extremities on his own volition, 5 out of 5 strength upper and lower extremity is equal bilaterally. IVs and Medications Medications Reviewed: Medications were reviewed in detail Lab and Diagnostics Result Diagram: 12/26/1634412/26/16344 Assessment & Plan Mr Vergara is an 81-year-old man with Paroxysmal A fib, Coronary artery disease who was found to have cecal neoplasm and scheduled for Palliative laparoscopic right colectomy with intracorporeal anastomosis (R2 resection) today but developed post operative arrhythmia with Ventricular tachycardia. 1. Non sustained Ventricular tachycardia. Present on admission Possibly due to post surgical ischemia or cardiovascular stress. Patient is scheduled to have an ablation procedure soon. - No re-occurrence since. - monitor on telemetry - consider a Amiodarone drip if reoccurs and is persists - monitor electrolytes with Potassium and Magnesium - consider contacting Dr Doyle if reoccurs. 2. 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 Present on admission s/p laparoscopic right colectomy with intracorporeal anastomosis - management as per Dr Duarte and surgical team - Oncology to consult per Dr. Duarte's Note. 3 Paroxysmal Atrial Fibrillation, Present on admission, active. - Has been in and out of atrial fibrillation all day. Multiple PVCs. - monitor on telemetry - Holding home enoxaparin until tomorrow morning to evaluate H&H, to be restarted by surgery. 4. Coronary artery disease s/p CABG, present on admission, stable. - Patient denies any anginal symptoms prior to surgery and currently does not have any chest pain. - troponin's have been negative. - continuing Lipitor 80 mg daily 5. Chronic Anemia. Normocytic, present on admission, stable. - No signs of active bleeding. Patient taking Iron supplements as outpatient, chronic anemia likely due to his current colon malignancy - monitoring H/H with plans to transfuse if Hgb < 8 6. Hypothyroidism, present on admission, stable. - continue Synthroid 75 mcg daily - Acetaminophen as needed for mild pain/fever/headache - Bowel regimen as needed - Antiemetic as needed Disposition: Patient's chronic medical conditions appear stable at this time. Estimated discharge time to be contributed by operating surgeons, and consulting oncologist. Barriers to discharge include increased pain, possible recurrence of arrhythmia, and patient and family's wishes versus needs of patient care. CODE STATUS: full code. . Pain Evaluation: Adequate Pain Control GI Prophylaxis: H2 sharee VTE Prophylaxis: Sub-Q Heparin (Unfractionated) VTE Mechanical Devices: Intermittant Pneumatic CD Resuscitation Status: CPR: Attempt Resuscitation Time spent 40 Minutes Attending Statement The patient was seen and examined together with Dr. Bernal on 12/26/16 and I have added additional information to the note above. Manuel Bernal DO Dec 26, 2016 17:45 Khloe Blandon DO Dec 27, 2016 15:42
[2016-12-26] MEDS: Haloperidol 5 mg/mL Inj IVPUSH SCH (21:05)
[2016-12-27] VITALS (15 sets, daily range): BP systolic 108–145; BP diastolic 57–80; PULSE 77–140; RESP 16–24; O2SAT 88–94
[2016-12-27] MEDS: Phenylephrine 20 mg/250 mL D5W IV SCH ×6 (01:44→17:30)
[2016-12-27] MEDS: Heparin 5,000 Unit/mL Inj SUBQ SCH (01:52)
[2016-12-27] MEDS: Insulin Human REGular 300 Unit/3 mL Inj SUBQ SCH ×4 (02:17→20:30)
[2016-12-27] MEDS: Acetaminophen IV 1,000 MG in IV Premix 1 EACH IV SCH ×3 (02:17→16:12)
[2016-12-27] MEDS: Haloperidol 5 mg/mL Inj IVPUSH SCH ×2 (02:17→10:02)
[2016-12-27] MEDS: Dextrose 5% Lactated Ringer's 1,000 ML IV SCH ×2 (02:18→17:29)
[2016-12-27 03:03] LABS: Mean Corpuscular Hemoglobin 27.8 pg (27.0-35.0); Mean Corpuscular Volume 88.7 fL (81-100)
--- NOTE | 2016-12-27 04:22 | NUR ---
BS/PAIN Pt's BS were 180, 1 unit low dose insulin given & 118 non insulin given. Pt denied severe pain, pt on SENIOR ADMINISTRATIVE ASSISTANT Dilaudid pump with no c/o abdominal or back pain. Pt is A&O, SARKAR, vitals stable, no other issues noted at this time.
[2016-12-27] MEDS: HYDROmorphone PCA 0.2 mg/mL 30 mL Inj IV PRN ×2 (04:58→16:20)
[2016-12-27] MEDS: Pantoprazole 40 mg ER24 Tablet PO SCH (06:08)
--- NOTE | 2016-12-27 10:10 | PCM.PNPALL ---
Date of Service Dec 27, 2016 Date of Hospital Admission: Dec 25, 2016 at 17:19 Palliative Care Recommendation Summary of palliative recommendations: -Symptom management (Pain/other) Nausea-proving to be a challenge to control. Most effective med has been haloperidol. [id number] recurrent and may represent pancreatic involvement. dr. Duarte has already raised the question of celiac block but hopefully this can be adequately controlled with oral meds. For now will increase his hydromorphone HOSTAGE NEGOTIATOR-continuous as well as PRN dosing. He had benefit from MS outpt although not completely. If discharged before friday-I would suggest starting MSER 15 mg BID and continue with MSIR 15-30 mg PRN Q2-3 hours. should have prompt f/u with Dr. Hollis or myself to adjust dosing from there. GOALS OF CARE-He would like to get home as soon as possible and maximize his time at home (ie minimize his time with hospitalizations etc. He is not interested in chemo IF it is at all debilitating feeling that would take him away from his home and family. Family will benefit from well coordinated communications due to the acuteness of diagnosis and with his 's hope for christie healing. He mentioned consideration for DWD if pain became uncontrollable. Counselled re pain management as well as the timing in requesting the DWD option. -DPOA/Advanced Directives/POLST-Based on discussion will change to DNR/DNI. POLST discussion to continue. He has AD and DPOAHC completed with his as 1st proxy. -Family/emotional support-strong support within family -Spiritual support-will need this going forward. They have informed their christie community. He feels very supported by his christie and this community--Iman Courtney Additional Medical Diagnoses with primary management by Hospitalist team include : Problems: End of Life Preferences DNR/DNI Goals of Care wants to be home as soon as he would be able Disposition home when cleared by surgery and parenteral pain control is changed to PO Resuscitation Status Resuscitation Status: DNR/DNI:Do Not Resuscitate/Intubate Limited Interventions: BiPAP, Medications and IV Fluid POLST Updates/Changes Previous POLST?: No Artificially Admin Nutrition: No Artifical Nutrition by Tube POLST Discussed with: Patient . 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 At time of surgery there was extensive mesenteric involvement and invasion into the pancreas. His back pain had been low and intermittent in the past. More recently developed mid back pain that really accelerated in intensity. He states this improved immediately post op but is starting to return. Patient/Family Concerns -Jazzy is working today and will not be back until 4 or after. >30 years- 3rd marriage for both of them. Blended family of 7 children- the 8th at age [id number] accident. He has 3 biological children-heis just starting to review concern for oncogene in family. Subjective Mid back pain returning No appetite but knows he needs to eat to keep up strength. Nausea now well controlled. Interested in getting up in a chair today if possible Palliative Performance Scale Performace Scale: 100% Responsive Patient Symptoms Pain (current): Moderate Pain (maximium): Moderate Tiredness/Fatigue: Mild Nausea: Severe *Requires 72 Hour Followup Anxiety: Mild Drowsiness/Sleepiness: Mild Anorexia: Moderate Shortness of Breath: None Objective Findings Exam Vital Sign - Last Date Time Temp Pulse Resp B/P Pulse Ox O2 Delivery O2 Flow Rate FiO2 12/27/16 08:00 87 12/27/16 07:43 36.8 18 145/80 93 Nasal Cannula 6.00 Intake and Output 12/26/16 12/26/16 12/27/16 Cumulative From/Thru 14:59 22:59 06:59 12/24/16 08:22 - 12/27/16 06:23 Intake Total 1663 ml 1175 ml 5738 ml Output Total 300 ml 250 ml 1430 ml Balance 1363 ml 925 ml 4308 ml Intake Oral 400 ml 75 ml 635 ml IV Total 1263 ml 1100 ml 5103 ml Output Urine Total 300 ml 250 ml 1410 ml Estimated Blood Loss 20 ml # Bowel Movements 0 General: Alert/Oriented x3, Moderate distress (nausea and pain) HEENT: PERRLA, EOMI, Scleral Anicteric, Mucous Membranes Dry Heart: Dysrhythmia Present Lungs: Other (sat on 3-4L low 90's. When off O2 they drop to 85%) Abdomen: Other (post op day 1, had small BM, taking in water PO, having some rectal urgency) Neuro: Cranial Nerve 3-12 Intact, Other (appropriate, good historian, alert, definitely decisional, has already processed much of his dx) Lab/Diagnostics Lab and Imaging results reviewed in detail in EMR. Patient/Family Conference Members Present Family Members Present only patient this AM Medical Team Members Present? [facility] Discussion/Goals of Care Discussion FAMILY UNDERSTANDING OF DISEASE: Patient defines to me that he realizes that he has a terminal disease. He has the sense that it is "too progressed" to likely be impacted by chemo but he is willing to get oncology consult and get their recommendations. He is willing to consider something if it is likely to give him maybe more months but must be good quality-"otherwise why bother". He believes that if his heart stopped it would be the kindest way to go and he is hoping for that with his known heart disease.He recognizes he doesn't get to call that. He thinks his AD has it defined that he wouldn't want "heroics". JANETH is reviewed with this in mind. He is not willing to sign this without going over it with his but he did state that he would not want to be resuscitated. He is willing to entertain the idea of hospice if oncology feels palliative direction is the best. While he hopes for a few years he understands it may be more in months. DISEASE PROGRESSION/EVIDENCE OF DECLINE: SYMPTOM BURDEN: anorexia, weight loss, BIGGEST ISSUE--back pain. GOALS: Main goal is to be able to be home with his of over 30 yrs and be with his family and be comfortable. He feels his affairs are in order (but intends to review them) HOPES/WORRIES: He feels secure that his family is resourceful and will do fine going forward after he dies. FAMILY WISHES/VALUES: Do you want to be told truth about his illness, even if unpleasant? Yes-Is very matter of fact about his illness. Does family want to know prognosis when it can be predicted, to better guide treatment decisions? Yes What is quality of life for the patient: to be able to interact with their loved ones and friends, be relatively pain free. Would patient choose quality of life over quantity of life? Definitely. He applies this to the question of chemotx and is hesitant to even agree should this be offered. Would comfort care be more important than being awake and alert? yes Time spent Total time 60 minutes; >50% face to face with patient and/or family, providing counselling regarding plans and recommendations, and in care coordination with his/her medical teams. Majority is counseling, coordination of care and med management I also spent an additional [ ] minutes counseling for advanced care planning with the patient/the patients family/the surrogate decision maker. copies to: Smith Duarte MD; Kat Arreola MD; Ehsan Hollis MD, Deborah A MD Dec 27, 2016 10:10
--- NOTE | 2016-12-27 10:32 | PROG NOTE ---
[address] [address] PROGRESS NOTE PATIENT: CONOR BULLOCK : 1935 MR#: [id number] ADMIT: 12/25/2016 JOB ID: [id number] DATE: 12/27/2016 SUBJECTIVE: The patient is seen postoperative day two from his palliative laparoscopic right colectomy for locally unresectable malignancy with colonic obstruction. The patient looks much better this morning. He is sitting up in bed. He is eating some full liquids. He tells me that although his lower back pain has recurred, overall he feels much better than he did prior to surgery. OBJECTIVE: He has remained afebrile and hemodynamically normal overnight. This morning his temperature is 36.8 degrees. His heart rate is 85 beats per minute. Blood pressure is 145/80, satting 93% on 6 L nasal cannula. Respiratory rate 18 breaths per minute. In general, he appears comfortable, in no acute distress. His abdomen is soft, nondistended. Not significantly tender. His dressings were removed. His incisions look fine. His white blood cell count is quite high this morning at 17.8, up from 16.5 yesterday. His hematocrit is stable at 32.2. His platelet count is 401. His creatinine is fine at 0.95. His albumin is low at 2.5. ASSESSMENT AND PLAN: This is an 81-year-old man two days out from what turned out to be a palliative right colectomy for locally advanced and unresectable malignancy involving the ascending colon with obstruction. Overall the patient looks much better today. At this point, we will focus on mobilizing him. His Neely can come out this morning. He does take warfarin at home for atrial fibrillation. I was considering restarting his Lovenox this afternoon, but I think I will probably put him on heparin drip as there is an increased risk for bleeding given the fact that I had to transect through tumor. I appreciate palliative care seeing him. I have also talked with Dr. Arreola and he will also see the patient at some point today.
[2016-12-27] MEDS: Polyethylene Glycol (PEG) 17 Gm Powder PO SCH (12:06)
[2016-12-27] MEDS: Alum-Mag Hydrox-Simeth 30 mL Suspension PO PRN (13:39)
--- NOTE | 2016-12-27 14:11 | PCM.PNMED ---
Subjective Date of Service Dec 27, 2016 Subjective Patient states he is doing better today. He still complains of back pain 7-05/08 , though he does say his nausea and abdominal pain is resolved. He received haloperidol for abdominal pain and nausea, which he responded well to. He denies any chest pain, shortness of breath, lightheadedness, dizziness, dysuria , hematochezia or any vomiting. Exam Vital Signs Vital Sign - Last Date Time Temp Pulse Resp B/P Pulse Ox O2 Delivery O2 Flow Rate FiO2 12/27/16 11:58 36.5 86 144/78 94 Nasal Cannula 4.00 12/27/16 07:43 18 Intake and Output 12/26/16 12/26/16 12/27/16 Cumulative From/Thru 15:00 23:00 07:00 12/24/16 08:22 - 12/27/16 06:23 Intake Total 1663 ml 1175 ml 5738 ml Output Total 300 ml 250 ml 1430 ml Balance 1363 ml 925 ml 4308 ml Intake Oral 400 ml 75 ml 635 ml IV Total 1263 ml 1100 ml 5103 ml Output Urine Total 300 ml 250 ml 1410 ml Estimated Blood Loss 20 ml # Bowel Movements 0 Exam General: Laying in bed, no apparent distress. Responds appropriately to questioning. AO3 HEENT: Normocephalic, atraumatic, EOMI grossly, Cardiovascular: Regular rhythm, occasional ectopic beat. no clicks murmurs rubs , peripheral pulses 2/4 equal bilaterally Pulmonary: Clear to auscultation bilaterally, some bibasilar rales that resolved with a couple deep breaths. Abdominal: Soft to palpation, surgical dressings in place. Nondistended. Tender to palpation. Negative rebound. Extremities: No edema appreciated. No tenderness, asymmetry. Neuro: Neurologically grossly intact, strength is equal bilaterally upper and lower extremities. MSK: Able to move extremities on his own volition, 5 out of 5 strength upper and lower extremity is equal bilaterally. IVs and Medications Medications Reviewed: Medications were reviewed in detail Lab and Diagnostics Result Diagram: 12/27/1621912/27/16219 Microbiology Blood cultures 2 pending Assessment & Plan Mr Vergara is an 81-year-old man with Paroxysmal A fib, Coronary artery disease who was found to have cecal neoplasm and scheduled for Palliative laparoscopic right colectomy with intracorporeal anastomosis (R2 resection), but developed post operative arrhythmia with Ventricular tachycardia. 1. Non sustained Ventricular tachycardia. Present on admission, stable Possibly due to post surgical ischemia or cardiovascular stress. Patient is scheduled to have an ablation procedure soon. - No re-occurrence since. - monitor on telemetry - consider a Amiodarone drip if represents and persists. - monitoring electrolytes with Potassium and Magnesium - consider contacting Dr Doyle if re-presents. 2. 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 Present on admission s/p laparoscopic right colectomy with intracorporeal anastomosis - management as per Dr Duarte and surgical team - Elba has been contacted by Dr. Duarte, has agreed to see the patient. - Palliative Care, Dr. Andres, has been working with patient to determine goals and pain reduction. - Goal is to ambulate and proceed towards discharge. 3 Paroxysmal Atrial Fibrillation, Present on admission, active. - Has been in and out of atrial fibrillation during admission, Multiple PVCs. - monitor on telemetry - On enoxaparin and warfarin at home, to be restarted by surgery. 4. Coronary artery disease s/p CABG, present on admission, stable. - Patient denies any anginal symptoms prior to surgery and currently does not have any chest pain. - troponin's have been negative. - continuing Lipitor 80 mg daily 5. Chronic Anemia. Normocytic, present on admission, stable. - No signs of active bleeding. Patient taking Iron supplements as outpatient, chronic anemia likely due to his current colon malignancy - monitoring H/H with plans to transfuse if Hgb < 8 6. Hypothyroidism, present on admission, stable. - continue Synthroid 75 mcg daily - Acetaminophen as needed for mild pain/fever/headache - Bowel regimen as needed - Antiemetic as needed Spoke personally with Dr. Duarte of general surgery, and Dr. Garcia of oncology Disposition: Patient's chronic medical conditions appear stable at this time. Estimated discharge time to be contributed by operating surgeons, and consulting oncologist. Barriers to discharge include increased pain, possible recurrence of arrhythmia, and patient and family's wishes versus needs of patient care. CODE STATUS: full code. . Pain Evaluation: Adequate Pain Control GI Prophylaxis: H2 sharee VTE Prophylaxis: Sub-Q Heparin (Unfractionated) VTE Mechanical Devices: Intermittant Pneumatic CD Resuscitation Status: DNR/DNI:Do Not Resuscitate/Intubate Limited Interventions: BiPAP, Medications and IV Fluid Time spent 35 minutes Attending Statement The patient was seen and examined together with Dr. Bernal on 12/27/16 and I have added additional information to the note above. Manuel Bernal DO Dec 27, 2016 14:11 Khloe Blandon DO Dec 27, 2016 15:55
[2016-12-27] MEDS ORDERED: Haloperidol 5 mg/mL Inj IVPUSH PRN (14:50)
[2016-12-27] MEDS: Heparin 25K Unit/500mL 0.45 NS 25,000 UNIT in IV Premix 1 EACH IV SCH (16:13)
--- NOTE | 2016-12-27 18:29 | NUR ---
Pain/Activity/Heparin gtt Patient a/o x 3, SARKAR c/o lower back pain 7-8/10, TYING IN MACHINE OPERATOR dose increased per MD. Patient oob amb in room with one person assist, steady gait, c/o dizziness with activity. Abd soft hypoactive bowel tones, freq belching. Had BM x 1, liq green. Neely patent michel uop. Patient rory liq diet fair, denies nausea but c/o indigestion, Maalox given. Heparin gtt started per MD orders. Will cont poc.
--- NOTE | 2016-12-27 18:56 | PROG NOTE ---
[address] [address] PROGRESS NOTE PATIENT: CONOR BULLOCK : 1935 MR#: [id number] ADMIT: 12/25/2016 JOB ID: [id number] DATE: 12/27/2016 DIAGNOSIS: Stage IV cecal adenocarcinoma, MSI--high. HISTORY OF PRESENT ILLNESS: The patient is a pleasant, 81-year-old gentleman, admitted to hospital after palliative right hemicolectomy. I was asked by Dr. Duarte to see this patient. He is accompanied in his hospital room by his , [id number] a and [id number]. This patient has history of colonic polyposis. He had a colonoscopy many years ago and then again in November 2014, and both times he had many polyps. The one in November 2012 sampled five polyps, and they were all tubular adenomas. Roughly two months ago, he started developing gradually progressive pain across upper abdomen, as well as mid and low back area. The pain has persisted and progressed over time, and during this time, he has unintentionally lost weight. He was having progressive fatigue, nausea, and weakness. He had one or more instances of hematochezia. He had a referral to GI, but could not wait and referred to ER on December 07. CT scan showed cecal and right colonic wall thickening. There were also numerous enlarged mesenteric and retroperitoneal lymph nodes. There were no liver metastases. A colonoscopy was done outpatient on December 13, and this demonstrated necrotic mass with ulceration in cecum. Biopsy showed poorly differentiated medullary-type colorectal carcinoma. This is consistent with micro satellite unstable tumor, which is usually highly immunogenic and associated with intense lymphocytic infiltration. Immunohistochemistry is atypical, including negative CK20 and negative CDX2, which are typically positive in conventional colorectal adenocarcinoma. There was loss of expression of MLH-1 and PMS-2 mismatch repair enzyme proteins. This is again consistent with micro satellite unstable tumor. He underwent elective palliative right hemicolectomy by Dr. Duarte two days ago on December 25. Intraoperatively, the entire ascending mesocolon and proximal transverse mesocolon was completely replaced by tumor, and he could not be rendered cancer-free by this operation. This was an R2 resection. Currently, he looks very weak and somewhat sleepy from pain medications. He is able to engage in meaningful, intelligent conversation, however. PAST MEDICAL HISTORY: 1. Colonic polyposis. 2. 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 3. Coronary artery disease. He is status post two-vessel CABG and subsequently had stents placed. 4. Cardiac pacemaker in place. 5. Peripheral vascular disease and carotid artery disease. 6. Hypothyroidism. 7. Nonmelanoma skin cancers. FAMILY HISTORY: His mother of advanced colon cancer at age 86. Other than that, there is no family history of colon cancer in his five siblings or his dad. SOCIAL HISTORY: He is retired. He smoked a long time ago and quit in 1960s. He is and they live in [place]. PHYSICAL EXAMINATION: He is somewhat groggy. Blood pressure 120/57, heart rate 80, temperature afebrile. O2 saturation 88%. HEENT: Normal except cachexia. Cardiac: Paced rhythm. Abdomen slightly distended postoperatively. Lower extremities: No edema. LABORATORY: Reactive leukocytosis, mild anemia, and low albumin. Liver function panel is normal. IMPRESSION AND RECOMMENDATION: This gentleman has the medullary type of colon carcinoma, which is different in behavior and response to treatment as compared to conventional colorectal adenocarcinoma. He does have stage IV disease. We had a long conversation today, and I explained to him that he has incurable, advanced-stage colon cancer, that is considered terminal. We discussed that treatment for his condition would be considered palliative, although there is relatively recent information regarding utility of immune checkpoint inhibitor therapy for this specific rare kind of colon cancer, i.e., medullary type, micro satellite unstable tumor. At the end of our conversation and after answering many questions he and his had, I doubt he would be interested in chemotherapy or immune therapy, but nonetheless, he has my information and if he decides to pursue therapy, I will be more than happy to see him in the clinic. He is being followed by Dr. Andres and if he decides to go home on hospice, that would be a very appropriate plan for him. Without palliative chemotherapy or immune therapy, his expected prognosis would be under six months. Thank you, Dr. Duarte, for kind referral.
[2016-12-27] MEDS: Heparin 5,000 Unit/mL Inj IVPUSH PRN (23:53)
[2016-12-28] VITALS (12 sets, daily range): BP systolic 91–128; BP diastolic 53–73; PULSE 71–132; RESP 14–20; O2SAT 91–95
[2016-12-28] MEDS ORDERED: MeTOProlol 1 mg/mL 5 mL Inj IV ONE (00:35)
[2016-12-28 01:23] LABS: Magnesium 2.1 mg/dL (1.6-2.6)
[2016-12-28] MEDS: Insulin Human REGular 300 Unit/3 mL Inj SUBQ SCH ×4 (02:30→20:30)
[2016-12-28] MEDS: Phenylephrine 20 mg/250 mL D5W IV SCH ×6 (02:46→17:31)
[2016-12-28] MEDS: HYDROmorphone PCA 0.2 mg/mL 30 mL Inj IV PRN ×3 (03:05→22:27)
[2016-12-28 04:28] LABS: Mean Corpuscular Hemoglobin 28.5 pg (27.0-35.0); Mean Corpuscular Volume 90.8 fL (81-100); Platelet Count 385 bil/L (150-400)
[2016-12-28 04:45] LABS: BASOPHILS % (AUTO) 0 % (0-3); EOSINOPHILS % (AUTO) 1 % (0-5); MONOCYTES % (AUTO) 7 % (4-12); NEUTROPHILS % (AUTO) 87 % (40-74)
[2016-12-28] MEDS: Dextrose 5% Lactated Ringer's 1,000 ML IV SCH ×2 (05:40→17:30)
[2016-12-28] MEDS: Heparin 5,000 Unit/mL Inj IVPUSH PRN ×2 (05:41→16:53)
--- NOTE | 2016-12-28 07:10 | NUR ---
HR/Respiratory/Pain Pt was A-Fib 110s up to the 150s with activity. Pt's HR increased until was was A-Fib 120s-150s at rest with frequent PVCs. MD was notified and pt received a one time dose of 5mg metoprolol IVP at approximately 0100. Pt's HR decreased and was A-Fib 70s-90s. At approximately 0345 pt converted to SR 80s-90s. During the pt's episode of A-Fib the pt's SpO2 was 92-93%. Once pt returned to SR while sleeping the pt's SpO2 began to increase to 94-97%. Pt's pulse ox was moved to pt's right hand since the pt has very thick nails on the right hand. Pt did c/o 7-8/10 pain in back and was reminded to use LOCKSTITCH MACHINE OPERATOR pump to help control the pain and bring it down to the pt's acceptable level of 3-4/10. Pt's pain did decrease to 3/10 and pt said that it was manageable at this level.
[2016-12-28] MEDS ORDERED: 0.9% Sodium Chloride 500 ML IV ONE (07:15)
--- NOTE | 2016-12-28 07:42 | NUR ---
Code Status Pt needs to clarify what code status he would like. Per the EMR it shows the pt as DNR/DNI. Pt does have Physician Directive in the paper chart. Pt told me last night that if his heart were to stop that he would want us to perform chest compressions and shock him if when asked.
[2016-12-28] MEDS: Pantoprazole 40 mg ER24 Tablet PO SCH (08:05)
--- NOTE | 2016-12-28 09:53 | PROG NOTE ---
[address] [address] PROGRESS NOTE PATIENT: CONOR BULLOCK : 1935 MR#: [id number] ADMIT: 12/25/2016 JOB ID: [id number] DATE: 12/28/2016 PROGRESS NOTE: Postoperative day three palliative laparoscopic right colectomy. He is not passing gas but is belching. There was a reported bowel movement, but he tells me that was quite loose and minimal, somewhat watery. Neely catheter remains in place. He does tell me that his tongue feels dry when he swallows, and the nurses have told me they think he has some thrush. PHYSICAL EXAMINATION: On examination, vital signs are within normal limits. He does have some white plaques on his tongue consistent with thrush. His abdomen is soft with quiet bowel tones. Incisions without signs of infection. LABORATORY DATA: Show a white count of 15.8, hematocrit of 30. Chemistries are normal except for slightly low sodium of 133. IMPRESSION/PLAN: Doing well with a slow postoperative progress. I will order some nystatin swish and swallow, and I will leave his diet where it is. I have encouraged him that if he is being too belchy that he should simply focus on drinking the Impact supplement rather than trying to take in a large volume overall.
[2016-12-28] MEDS: Nystatin 100,000 Unit/mL 5 mL Suspension PO SCH ×4 (09:58→20:50)
--- NOTE | 2016-12-28 11:07 | NUR ---
NUTRITION ASSESSMENT: ASSESS:81 YO male admitted with stage IV medullary colon carcinoma admitted following palliative laparoscopic right colectomy per [facility] protocol; POD #3. Per oncology, his carcinoma is considered terminal; patient and unlikely to opt for chemotherapy at this point. His diet has been advanced to full liquids, with yogurt, Ensure and Impact Advanced Recovery added to all trays to meet his increased nutrient needs due to cancer. PO intake 50% - 100% trays currently. Code status: DNR / DNI. PMHx:SK (seborrheic keratosis), anemia, benign neoplasm of colon, atrophic gastritis, syncope, GERD, hypothyroidism, lymphoma, basal cell carcinoma, SSS, A-fib. DIET:Full liquids with supplements added to trays. LABS: Na 133, Glu 107, Ca 7.9, Alb 2.5. MEDICATIONS: Lopressor, lasix, insulin, synthroid. NUTRITION FOCUSED PHYSICAL ASSESSMENT: GI symptoms / stool: No stool reported.Jaun: 19 Skin Integrity: No issues reported. ANTHROPOMETRICS: Current Wt: 86.7 kgBMI: 28.0 kg/m2.Admit weight: 81.193 kg. IBW: 72.73 kg (112% IBW) ESTIMATED NEEDS (CANCER): Calories: 2030 - 2436 kcal (25 - 30 kcal / kg BW) Protein: 81 - 122 g protein (1.0 - 1.5 g / kg BW) Fluid: Approx. 2030 mL (25 mL / kg BW) NUTRITION DIAGNOSIS: 1)Increased nutrient needs related to disease process, as evidenced by dx stage IV medullary colon cancer. INTERVENTION: 1) Will continue to send Yogurt, Ensure and Impact Advanced Recovery all trays during this admission. MONITOR/EVALUATE: Diet advance / tolerance, PO intake, labs, GI/nutrition status. Follow up per moderate nutrition risk guidelines.
--- NOTE | 2016-12-28 12:45 | NUR ---
Evaluation completed. Please go to "Notes" then click on "Assessments and Notes" (bottom left corner of screen). Then select appropriate discipline tab on top of screen.
[2016-12-28] MEDS: Polyethylene Glycol (PEG) 17 Gm Powder PO SCH (14:54)
--- NOTE | 2016-12-28 16:32 | PCM.PNMED ---
Subjective Date of Service Dec 28, 2016 Subjective Patient states he is doing well. He denies any nausea or vomiting however has been having to belch with increased frequency. States that his back pain has been able to be controlled with patient-controlled analgesia, occasionally getting out of control. Is requesting protein shake and yogurt to eat as he does not particularly enjoy the food he is being served. Reports having a bowel movement yesterday. ROS otherwise negative Exam Vital Signs Vital Sign - Last Date Time Temp Pulse Resp B/P Pulse Ox O2 Delivery O2 Flow Rate FiO2 12/28/16 11:36 37.0 92 16 109/65 95 Nasal Cannula 8.00 Intake and Output 12/27/16 12/27/16 12/28/16 Cumulative From/Thru 15:00 23:00 07:00 12/24/16 08:22 - 12/28/16 06:12 Intake Total 1852 ml 672 ml 8262 ml Output Total 450 ml 250 ml 2130 ml Balance 1402 ml 422 ml 6132 ml Intake Oral 760 ml 478 ml 1873 ml IV Total 1092 ml 194 ml 6389 ml Output Urine Total 450 ml 250 ml 2110 ml Estimated Blood Loss 20 ml # Bowel Movements 1 1 Exam General: Laying in bed, no apparent distress. Responds appropriately to questioning. AO3 HEENT: Normocephalic, atraumatic, EOMI grossly, white plaques noted on the tongue consistent with oral thrush Cardiovascular: Regular rhythm, occasional ectopic beat. no clicks murmurs rubs , peripheral pulses 2/4 equal bilaterally Pulmonary: Clear to auscultation bilaterally, some bibasilar rales that resolved with a couple deep breaths. Abdominal: Soft to palpation, Steri-Strips in place over surgical wounds, appropriate hemostasis. Nondistended. Tender to palpation. Negative rebound. Bowel sounds are present, high-pitched in the upper caceres. Extremities: No edema appreciated. No tenderness, asymmetry. Neuro: Neurologically grossly intact, strength is equal bilaterally upper and lower extremities. MSK: Able to move extremities on his own volition, 5 out of 5 strength upper and lower extremity is equal bilaterally. 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 1. Non sustained Ventricular tachycardia. Present on admission, stable Possibly due to post surgical ischemia or cardiovascular stress. Patient is scheduled to have an ablation procedure soon. - No recurrence - monitor on telemetry - consider a Amiodarone drip if represents and persists. - monitoring electrolytes with Potassium and Magnesium - consider contacting Dr Doyle if re-presents. 2. 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 Present on admission -s/p laparoscopic right colectomy with intracorporeal anastomosis - management as per Dr Duarte and surgical team - Dr. Arreola has spoken with the patient, per his note at this time has not yet agreed to seek chemotherapy or immunotherapy, however definitive decision has not been made. -Explained to patient treatment would be palliative. - Palliative Care, Dr. Andres, has been working with patient to determine goals and pain reduction. - Goal is to ambulate, advance diet as tolerated, and proceed towards discharge. 3 Paroxysmal Atrial Fibrillation, Present on admission, active. - Has been in and out of atrial fibrillation during admission, Multiple PVCs. - Elevated heart rate 130s and 40s, necessitating one time dose 5 mg IV metoprolol on 12/28/2016, return to rate control and has remained. - monitor on telemetry - On enoxaparin and warfarin at home, to be restarted by surgery. - Currently receiving heparin IV 4. Acute oral thrush, not present on admission, active - Nystatin oral swish - Continue to monitor 5. Acute hyponatremia, not present on admission, active improved from yesterday -Na 129 yesterday today 133 - 500cc bolus NSS today x 1 dose - We will reevaluate in the a.m. - Continue to monitor rhythms 5. Coronary artery disease s/p CABG, present on admission, stable. - troponin's have been negative x3 - continue Lipitor 80 mg daily 6. Chronic Anemia. Normocytic, most likely 2/2 his current colon malignancy present on admission, stable. - No signs of active bleeding. - Continue Fe supplements - monitoring H/H with plans to transfuse if Hgb < 8 7. Hypothyroidism, present on admission, stable. - continue Synthroid 75 mcg daily - Acetaminophen as needed for mild pain/fever/headache - Bowel regimen as needed - Antiemetic as needed Spoke personally with Dr. Arreola of oncology Disposition: Patient's chronic medical conditions appear stable at this time. Estimated discharge time to be contributed by operating surgeons, and consulting oncologist. Barriers to discharge include pain, possible recurrence of arrhythmia, slow recovery from surgery, and patient and family's wishes versus needs of patient care. Patient currently has been diagnosed with a medullary carcinoma of the colon. Patient's options have been explained to him by Dr. Arreola. The patient will discuss matters with his and make a decision on whether to be treated with immunotherapy or to go on hospice. Once patient is tolerating a soft diet and he should be cleared to go home by surgery. Pain Evaluation: Adequate Pain Control GI Prophylaxis: Proton Pump Inhibitor VTE Prophylaxis: Other (heparin drip) Resuscitation Status: DNR/DNI:Do Not Resuscitate/Intubate Time spent 35 minutes Attending Statement The patient was seen and examined together with Dr. Bernal on 12/28/16 and I have added additional information to the note above. Manuel Bernal DO Dec 28, 2016 16:32 Khloe Blandon DO Dec 28, 2016 17:38
--- NOTE | 2016-12-28 17:10 | NUR ---
Activity/Resp/UOP Patient a/o x 3, c/o lower back and abd pain, 4-5/10 using skip hoist engineer more frequently this shift. VSS, tele SR with one episode V tach, patient asymptomatic. Patient oob x 2 amb in room steady gait, c/o dizziness with getting up. O2 increased to 9L oxymask when sleeping for sats 83-85%. Neely removed, patient MD WILLIS notified and new orders recieved. Abd distended semi soft hypoactive bowel tones. Patient denies nausea, taking diet fair. BM x 1, liq green-brown this shift. Will cont poc.
[2016-12-28] MEDS: Alum-Mag Hydrox-Simeth 30 mL Suspension PO PRN (19:03)
[2016-12-28] MEDS: Heparin 25K Unit/500mL 0.45 NS 25,000 UNIT in IV Premix 1 EACH IV SCH (20:50)
[2016-12-29] VITALS (14 sets, daily range): BP systolic 97–136; BP diastolic 52–77; PULSE 70–148; RESP 14–20; O2SAT 93–99
[2016-12-29] MEDS: Insulin Human REGular 300 Unit/3 mL Inj SUBQ SCH ×5 (02:30→20:28)
[2016-12-29] MEDS: Phenylephrine 20 mg/250 mL D5W IV SCH ×2 (03:40)
[2016-12-29 05:19] LABS: Mean Corpuscular Hemoglobin 27.4 pg (27.0-35.0); Mean Corpuscular Volume 90.5 fL (81-100)
[2016-12-29] MEDS: Pantoprazole 40 mg ER24 Tablet PO SCH (05:36)
--- NOTE | 2016-12-29 06:13 | NUR ---
I&O/Respiratory/HR Pt's garcia catheter was DC'd in the AM on 12/28/2016. Pt's total fluid input for the shift was 935ml with total urine output of 200ml. Pt's average urine output is 0.09ml/kg/hr. Pt was bladder scanned with 19ml residual left in the bladder. Pt's BUN is within normal limits and pt's creatinine is low. MD was notified. Need to continue to monitor pt's UOP. Pt's SpO2 became <92% on 6L NC so an oxymask was put on the pt at 8L and pt SpO2 now >92%. Pt's HR has gone in and and out of SR and A-Fib throughout the assistant shift supervisor and MD was made aware.
[2016-12-29] MEDS: Dextrose 5% Lactated Ringer's 1,000 ML IV SCH (07:10)
[2016-12-29] MEDS: Nystatin 100,000 Unit/mL 5 mL Suspension PO SCH ×4 (08:18→20:26)
[2016-12-29] MEDS: HYDROmorphone PCA 0.2 mg/mL 30 mL Inj IV PRN ×2 (09:48→21:46)
[2016-12-29] MEDS: Polyethylene Glycol (PEG) 17 Gm Powder PO SCH (12:00)
--- NOTE | 2016-12-29 12:58 | PCM.PNMED ---
Subjective Date of Service Dec 29, 2016 Subjective Patient reports he is doing well today. His pain is under much better control. He does feel generally weak but is not surprised by this. He plans to continue getting up to the bathroom and sitting in a chair in an effort to improve. He has been able to have multiple liquid stools (two so far this AM) and is able to urinate with no problem. His nausea is controlled and his appetite is improving. He has been approved for an advanced diet and is quite interested in eating more solid foods. Overnight, there were no major events. Exam Vital Signs Vital Sign - Last Date Time Temp Pulse Resp B/P Pulse Ox O2 Delivery O2 Flow Rate FiO2 12/29/16 12:28 36.5 72 18 97/52 95 Nasal Cannula 6.00 Intake and Output 12/28/16 12/28/16 12/29/16 Cumulative From/Thru 15:00 23:00 07:00 12/24/16 08:22 - 12/29/16 05:49 Intake Total 1472 ml 935 ml 89301 ml Output Total 600 ml 200 ml 2930 ml Balance 872 ml 735 ml 7739 ml Intake Oral 620 ml 500 ml 2993 ml IV Total 852 ml 435 ml 7676 ml Output Urine Total 600 ml 200 ml 2910 ml Estimated Blood Loss 20 ml # Bowel Movements 1 0 2 Exam General: Laying in bed, no apparent distress. Responds appropriately to questioning. AO3 HEENT: Normocephalic, atraumatic, PERRLA, EOMI, oral mucosa dry, oral thrush still apparent Neck: supple, nontender, no JVD appreciated Cardiovascular: Regular rhythm, occasional ectopic beat. no clicks murmurs rubs Pulmonary: Clear to auscultation bilaterally Abdominal: Soft to palpation, Steri-Strips in place over surgical wounds, no evidence of bleeding. Nondistended. Tender to palpation. Negative rebound. Normoactive bowel tones. Extremities: No cyanosis, clubbing. Mild pitting edema in the lower extremities bilaterally. Radial pulse present and equivalent bilaterally. Dorsalis pedis pulse diminished bilaterally. Neuro: Neurologically grossly intact, strength is equal bilaterally upper and lower extremities. Psych: appropriate mood and affect IVs and Medications Medications Reviewed: Medications were reviewed in detail Lab and Diagnostics Result Diagram: 12/29/16 0500 12/29/16 0500 Assessment & Plan Patient is an 81-year-old man with Paroxysmal A fib, Coronary artery disease who was found to have cecal neoplasm and scheduled for Palliative laparoscopic right colectomy with intracorporeal anastomosis (R2 resection), but developed post operative arrhythmia with Ventricular tachycardia. Hospital day 5 1. Non sustained Ventricular tachycardia, acute present on admission, improving. - Possibly due to post surgical ischemia or cardiovascular stress. Patient is scheduled to have an ablation procedure soon. - Continue telemetry. 2. 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 - S/p laparoscopic right colectomy with intracorporeal anastomosis. - Management as per Dr Duarte and surgical team. - Dr. Arreola has spoken with the patient, per his note at this time has not yet agreed to seek chemotherapy or immunotherapy, however definitive decision has not been made. Explained to patient treatment would be palliative. - Palliative care has been consulted and we appreciate their continued involvement with goals of care. - Goal is to ambulate, advance diet as tolerated, and proceed towards discharge. - Pain regimen currently includes EXECUTIVE STEWARD dilaudid. Will defer to general surgery for changes in this regimen. - Haloperidol, metoclopramide, ondansetron and promethazine available PRN nausea. 3. Paroxysmal Atrial Fibrillation, Present on admission, ongoing. - Continue metoprolol tartrate 50 mg BID. - Continue telemetry. - Currently receiving heparin IV. Will restart home coumadin per surgery recommendations. 4. Acute oral thrush, not present on admission, ongoing. - Nystatin oral swish started 12/28/16. - Continue to monitor. 5. Acute hyponatremia, not present on admission, improving. - Continue to monitor BMP. 6. Coronary artery disease s/p CABG, chronic, presume stable. - Continue atorvastatin 40 mg HS. 7. Chronic normocytic anemia, presume stable. - Likely 2/2 his current colon malignancy present on admission, stable. - No signs of active bleeding. - Continue Fe supplements. - Continue to monitor CBC. Transfuse if Hgb <8. 8. Hypothyroidism, chronic, presume stable. - Continue Synthroid 75 mcg daily. 9. BPH, chronic, presume stable. - Continue tamsulosin 0.4 mg daily. 10. Hypertension, chronic, presume stable. - Continue amlodipine 10 mg daily. - Continue Lasix 20 mg daily. - Acetaminophen PRN for mild pain/fever/headache - Bowel regimen available PRN. - Antacid available PRN. Disposition: Patient's chronic medical conditions appear stable at this time. Estimated discharge time to be contributed by operating surgeons and consulting oncologist. GI Prophylaxis: Proton Pump Inhibitor VTE Prophylaxis: Other (heparin drip) VTE Mechanical Devices: Intermittant Pneumatic CD Resuscitation Status: DNR/DNI:Do Not Resuscitate/Intubate Limited Interventions: BiPAP, Medications and IV Fluid Time spent 30 minutes Attending Statement The patient was seen and examined together with Dr. Rowan on 12/29/16 and I agree with the history, exam and plan as outlined in the note above. Loan Rowan DO Dec 29, 2016 12:58 Khloe Blandon DO Dec 29, 2016 15:55 Loan Rowan DO Dec 29, 2016 12:58
--- NOTE | 2016-12-29 14:44 | PROG NOTE ---
[address] [address] PROGRESS NOTE PATIENT: CONOR BULLOCK : 1935 MR#: [id number] ADMIT: 12/25/2016 JOB ID: [id number] DATE: 12/29/2016 Postop day four palliative laparoscopic right colectomy. He is feeling better today, no more belching, having more normal stool. He is expressing more interest in eating as well. Swallowing has improved once the nystatin was started. He was up in the chair most of the morning. His temperature is 36.5. His pulse is currently 91 though was as high as 148 in AFib earlier and his blood pressure is 136/77. He is tired but appears comfortable. His abdominal incisions are fine without signs of infection. LABORATORY DATA: His white count is trending down to 13.3, his hematocrit is 30.4. Platelet count is 453. Electrolytes are normal. IMPRESSION AND PLAN: He is doing well with resolving postoperative ileus. I think he can advance his diet as tolerated. We will try to get him off of his SUPERVISOR [employer] EDUCATION to oral medications in anticipation of discharge home. He continues on his IV heparin as a bridging therapy for his anticoagulation for atrial fibrillation. I will leave it up to Dr. Duarte regarding postoperative anticoagulation.
--- NOTE | 2016-12-29 14:51 | NUR ---
MISSY Signed VIVIAN Maxwell
--- NOTE | 2016-12-29 14:52 | NUR ---
Social Work Note: Continued Discharge Planning Data& Assessment: SW met with pt and pt daughter at bedside to discuss discharge planning, SW role explained. Per PT, pt requires home health services at time of discharge. SW provided HH list and brochures for the various companies for pt and pt family to review. SW to follow up with pt and pt family regarding preferences. Pt and pt daughter deny any other needs at this time. SW to continue to follow. Plan: Anticipated discharge home via POV with home health services to follow. SW to follow up with pt and pt family regarding preferences. Pt and pt daughter deny any other needs at this time. SW to continue to follow. VIVIAN Maxwell
--- NOTE | 2016-12-29 18:17 | NUR ---
Activity/Stools Patient a/o x 3, oob multiple times this shift with min to sba, rory well. Abd soft, positive bowel tones, lap sites with steri strips c/d/i. Patient had liq stool x 2. Heparin gtt cont per MD orders. Rory diet well no c/o nausea or emesis. Will cont poc.
[2016-12-29] MEDS: Heparin 5,000 Unit/mL Inj IVPUSH PRN (19:13)
[2016-12-29] MEDS: Heparin 25K Unit/500mL 0.45 NS 25,000 UNIT in IV Premix 1 EACH IV SCH (20:47)
[2016-12-30] VITALS (7 sets, daily range): BP systolic 124–132; BP diastolic 60–69; PULSE 80–84; RESP 18–20; O2SAT 93–96
[2016-12-30 01:19] LABS: BASOPHILS % (AUTO) 0.5 % (0-3); EOSINOPHILS % (AUTO) 1.9 % (0-5); MONOCYTES % (AUTO) 9.9 % (4-12); Mean Corpuscular Hemoglobin 28.7 pg (27.0-35.0); Mean Corpuscular Volume 89.8 fL (81-100); Platelet Count 414 bil/L (150-400)
[2016-12-30 02:02] LABS: Magnesium 2.2 mg/dL (1.6-2.6); Phosphorus 2.2 mg/dL (2.5-4.9)
--- NOTE | 2016-12-30 06:13 | NUR ---
pain: pt. rates back pain at 6/10. abdominal pain /10. pt. given 10mg roxicodone, REEL WINDER turned off at 6am, will reassess to see if he can tolerate oral pain meds only, pt. became slightly confused, forgetful last night, pulling tele leads off, taking o2 off.
[2016-12-30] MEDS: Nystatin 100,000 Unit/mL 5 mL Suspension PO SCH (07:59)
[2016-12-30] MEDS: Pantoprazole 40 mg ER24 Tablet PO SCH (07:59)
[2016-12-30] MEDS: Insulin Human REGular 300 Unit/3 mL Inj SUBQ SCH (08:02)
[2016-12-30] MEDS ORDERED: Morphine ER 15 mg (MS Contin) Tablet PO SCH (08:30)
--- NOTE | 2016-12-30 09:53 | PROG NOTE ---
[address] [address] PROGRESS NOTE PATIENT: CONOR BULLOCK : 1935 MR#: [id number] ADMIT: 12/25/2016 JOB ID: [id number] DATE: 12/30/2016 SUBJECTIVE: The patient is seen postoperative day five from his palliative laparoscopic right colectomy. The patient is doing well this morning. Over the weekend, his diet was advanced to a regular diet. He has been having bowel movements. He was transitioned to oral pain medicine yesterday evening. He has not yet achieved adequate pain control for his back pain. OBJECTIVE: He has remained afebrile and hemodynamically normal over the last 24 hours. This morning, he is alert and oriented. He appears comfortable. His abdomen is soft, nontender, nondistended. His incisions are clean, dry, and intact. Yesterday, he took in 1.4 L of oral intake. He had two bowel movements recorded yesterday. His white blood cell count continues to trend down. It is 12.5 today from 13.3 yesterday. His hematocrit is stable at 29.1. His creatinine is 0.76. ASSESSMENT AND PLAN: This is an 81-year-old man with an aggressive locally unresectable medullary colon cancer, status post palliative resection. I discussed goals of care with the patient and his daughter. They are, at this point, not interested in chemotherapy or pursuing any other medical treatment. His plan is to go home and be with his family, and at home. From a surgical standpoint, he is okay to discharge today. I will defer his pain regimen to the Palliative Care team. With respect to his anticoagulation for atrial fibrillation, given the goals of care and the short life expectancy, the family and I made the decision to discontinue heparin drip and not restart his Coumadin.
--- NOTE | 2016-12-30 12:02 | NUR ---
Social Work Note: Continued Discharge Planning Data& Assessment: Per Morning rounds and Palliative care MD, pt and pt family would like to pursue Hospice care at home. SW requested opening date with Hospice and waiting for call back regarding official opening date. SW to continue to follow for oxygen needs going home. SW to continue to follow. Plan: Anticipated discharge home with hospice when medically stable and after pt is evaluated for 02 needs going home. SW awaiting call back from Hospice regarding official opening date. SW to continue to follow. VIVIAN Maxwell
--- NOTE | 2016-12-30 14:02 | PCM.DIMED ---
Nohemy Hall DO 12/30/16 1401: Discharge Instructions Date of Service Dec 30, 2016 Dates of Hospitalization Dec 25, 2016 at 17:19 Discharge Diagnosis Discharge Diagnosis 1. Non sustained Ventricular tachycardia, acute present on admission, improving. 2. 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 3. Paroxysmal Atrial Fibrillation, Present on admission, ongoing. 4. Acute oral thrush, not present on admission, ongoing. 5. Acute hyponatremia, not present on admission, improving. 6. Coronary artery disease s/p CABG, chronic, presume stable. 7. Chronic normocytic anemia, presume stable. 8. Hypothyroidism, chronic, presume stable. 9. BPH, chronic, presume stable. 10. Hypertension, chronic, presume stable. Medication Instructions 1. Please take Morphine Sulfate 30 mg by mouth twice a day for pain 2. Take Tylenol 975 mg by mouth every 6 hours for pain. 3. If pain is not controlled with the medications listed above, you can take Oxycodone 5-10 mg every 4 hours as needed. 4. For nausea, take Zofran 4-8 mg every 4 hours as needed. 5. Please discontinue Coumadin. Diet No restrictions Activity No restrictions Call your provider Fever or Chills, Shortness of breath, Bleeding, Chest pain, Vomitting, Excessive diarrhea, Weakness (unilateral) Patient Instructions Follow-up Provider: Ehsan Hollis MD Follow-up with PCP in: 2 weeks Kp Hernandez MD 12/31/16 0746: Discharge Instructions Attending's Statement The patient was seen and examined together with Dr. Hall on 12/30/2016 and I agree with the history, exam and plan as outlined in the note above. . Nohemy Hall DO Dec 30, 2016 14:01 Kp Hernandez MD Dec 31, 2016 07:46
[2016-12-30] MEDS ORDERED: MS30TCR PO (14:07)
[2016-12-30] MEDS ORDERED: OXYC-474 PO (14:10)
[2016-12-30] MEDS ORDERED: ACET325T51 PO (14:12)
[2016-12-30] MEDS ORDERED: ONDA4TAB6 PO (14:13)
--- NOTE | 2016-12-30 14:24 | NUR ---
Faxed prescription for walker to [facility]
--- NOTE | 2016-12-30 14:41 | NUR ---
Social Work Note: Discharge Data& Assessment: Per pt is medically stable and ready to discharge home via POV. RT evaluating pt for final oxygen recommendations. SW confirmed with Jessica from Hospice that they will be able to do the initial informational visit tomorrow, Friday12/31/2016 and to sign consents. notified. SW met with pt and pt family at bedside to confirm discharge plan and assess for any unmet needs. Pt transporting pt home privately. Pt and pt family deny any other needs. No other discharge needs identified. Plan: Per pt is stable and medically ready to discharge home via POV with Hospice to open at a later date and completing their informational visit with the pt and pt family tomorrow 12/31/2016. Pt and pt family deny any other needs. No other discharge needs identified. VIVIAN Maxwell
--- NOTE | 2016-12-30 15:03 | PCM.DC.MED ---
Discharge Summary Date of Service Dec 30, 2016 Dates of Hospitalization Date of Hospital Admission Dec 25, 2016 at 17:19 Date of Discharge: Dec 30, 2016 Providers: Admitting Physician: Smith Duarte MD Primary Care Physician: Ehsan Hollis MD Attending Physician: Smith Duaret MD Diagnosis at Time of Discharge Diagnosis at Time of Discharge 1. Non sustained Ventricular tachycardia, acute present on admission, improved. 2. 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 3. Paroxysmal Atrial Fibrillation, Present on admission, ongoing. 4. Acute oral thrush, not present on admission, improved. 5. Acute hyponatremia, not present on admission, improved. 6. Coronary artery disease s/p CABG, chronic, presume stable. 7. Chronic normocytic anemia, presume stable. 8. Hypothyroidism, chronic, presume stable. 9. BPH, chronic, presume stable. 10. Hypertension, chronic, presume stable. Consultations Surgery, Dr. Duarte Palliative care, Dr. Andres Brief History According to Admitting Physician: Smith Duarte MD and Attending Physician: Smith Duarte MD Admit Status: From the Emergency Department, Full Admit, Critical Care Mr Vergara is an 81-year-old man with Paroxysmal A fib, Coronary artery disease who was found to have cecal neoplasm and scheduled for Palliative laparoscopic right colectomy with intracorporeal anastomosis (R2 resection) today with Dr Duarte. Patient was diagnosed with cecal neoplasm, almost certainly representing a malignancy. The patient tells me that for the past 2 months he has been experiencing terrible back, abdominal, and testicular pain. This is been accompanied by a 10-15 pound unintentional weight loss. He is also noted blood in his stool. On December 07 he presented to the emergency department with this complaint and a CT scan demonstrated prominent cecal and right colonic wall thickening with adjacent fat stranding. On the the colonoscopy was performed which demonstrated a cecal mass with necrotic tissue and ulceration at the appendiceal orifice. Past medical and surgical history are reviewed and significant for: Cardiac disease status post a two-vessel CABG in 2002 followed by coronary stenting in 2012 was complicated by myocardial infarction. He had a recent negative exercise stress test. He also has atrial fibrillation for which he is scheduled to undergo ablation after colonic procedure He is on Coumadin. He had a left carotid endarterectomy 20 years ago with no subsequent surveillance. He also has a cholesterol, hypertension Dr Long otto contacted me with concerns about Non sustained Ventricular tachycardia after the procedure. Vitals otherwise stable and the concensus is to watch him closely on telemetry overnight Hospital Course Patient is an 81-year-old man with Paroxysmal A fib, Coronary artery disease who was found to have cecal neoplasm and scheduled for Palliative laparoscopic right colectomy with intracorporeal anastomosis (R2 resection), but developed post operative arrhythmia with Ventricular tachycardia. 1. Non sustained Ventricular tachycardia, acute present on admission, improved. - Possibly due to post surgical ischemia or cardiovascular stress. 2. 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 - S/p laparoscopic right colectomy with intracorporeal anastomosis. - Palliative care has been consulted.Patient and family were not interested in chemotherapy or pursuing any other medical treatment. His plan was to go home and be with his family, and at home. - Patient discharged Home (with future Hospice; Hospice intake visit scheduled on 12/31/16) on hospital day 6 on Morphine, Oxycodone, Tylenol and Zofran. 3. Paroxysmal Atrial Fibrillation, Present on admission, ongoing. - Continued with metoprolol tartrate 50 mg BID. - Discontinued heparin drip, discontinued home Coumadin. 4. Acute oral thrush, not present on admission, resolved - Nystatin oral swish was started on 12/28/16. 5. Acute hyponatremia, not present on admission, improving. - Sodium of 133 on the day of discharge. 6. Coronary artery disease s/p CABG, chronic, presume stable. - Continued with atorvastatin 40 mg HS. 7. Chronic normocytic anemia, presume stable. - Likely 2/2 his current colon malignancy present on admission, stable. - No signs of active bleeding on the day of discharge. - Continued with Fe supplements. - Hemoglobin and hematocrit on the day of discharge was 9.3 and 29.1 respectively. 8. Hypothyroidism, chronic, presume stable. - Continued with Synthroid 75 mcg daily. 9. BPH, chronic, presume stable. - Continued with tamsulosin 0.4 mg daily. 10. Hypertension, chronic, presume stable. - Continued with amlodipine 10 mg daily and Lasix 20 mg daily. Exam Vital Signs (Last) Date Time Temp Pulse Resp B/P Pulse Ox O2 Delivery O2 Flow Rate FiO2 12/30/16 08:46 80 12/30/16 07:52 36.5 20 127/60 96 Nasal Cannula 4.00 Exam General: Laying in bed, no apparent distress. Responds appropriately to questioning. AO3 HEENT: Normocephalic, atraumatic, PERRLA, EOMI, oral mucosa dry Neck: supple, nontender, no JVD appreciated Cardiovascular: Regular rhythm, occasional ectopic beat. No clicks, murmurs, rubs Pulmonary: Clear to auscultation bilaterally Abdominal: Soft to palpation, Steri-Strips in place over surgical wounds, no evidence of bleeding. Nondistended. Tender to palpation. Negative rebound. Normoactive bowel tones. Extremities: No cyanosis, clubbing. Mild pitting edema in the lower extremities bilaterally. Radial pulse present and equivalent bilaterally. Dorsalis pedis pulse diminished bilaterally. Neuro: Neurologically grossly intact, strength is equal bilaterally upper and lower extremities. Psych: appropriate mood and affect Test 12/25/16 10:30 12/25/16 15:52 12/26/16 03:45 12/26/16 16:32 Prothrombin Time 13.6sec (8.1-12.5) Prothromb Time International Ratio 1.26ratio Hold Urine Received (Received) Hemoglobin A1c 6.1% (4.8-5.6) Troponin T < 0.010ug/L (0.0-0.011) Test 12/28/16 04:15 12/30/16 01:07 12/30/16 08:15 Band Neutrophils % 1% (1-5) White Blood Count 12.5th/mm3 (3.8-10.1) Red Blood Count 3.24mil/mm3 (4.40-5.80) Hemoglobin 9.3g/dL (13.8-17.2) Hematocrit 29.1% (41.0-50.0) Mean Corpuscular Volume 89.8fL (81-100) Mean Corpuscular Hemoglobin 28.7pg (27.0-35.0) Mean Corpuscular Hemoglobin Concent 32.0% (32.0-37.0) Red Cell Distribution Width 14.5% (12.3-15.4) Platelet Count 414bil/L (150-400) Neutrophils (%) (Auto) 81.0% (40-74) Lymphocytes (%) (Auto) 4.5% (14-46) Monocytes (%) (Auto) 9.9% (4-12) Eosinophils (%) (Auto) 1.9% (0-5) Basophils (%) (Auto) 0.5% (0-3) Sodium Level 133mEq/L (134-144) Potassium Level 4.5mEq/L (3.5-5.2) Chloride Level 98mEq/L (97-108) Carbon Dioxide Level 25mmol/L (18-29) Blood Urea Nitrogen 26mg/dL (8-27) Creatinine 0.76mg/dL (0.76-1.27) Estimat Glomerular Filtration Rate 104mL/min (>59) Glucose Level 115mg/dL (60-99) Calcium Level 7.8mg/dL (8.5-10.1) Phosphorus Level 2.2mg/dL (2.5-4.9) Magnesium Level 2.2mg/dL (1.6-2.6) Total Bilirubin 0.3mg/dL (0.0-1.2) Aspartate Amino Transf (AST/SGOT) 14U/L (0-50) Alanine Aminotransferase (ALT/SGPT) 9U/L (0-44) Alkaline Phosphatase 75U/L (25-160) Total Protein 5.1g/dL (6.4-8.4) Albumin 2.9g/dL (3.4-5.0) Activated Partial Thromboplast Time 40.5sec (22.8-33.0) Discharge Medications Discharge Medications Amlodipine (Amlodipine) 10 Mg Tablet 10 MG PO DAILY (Reported) Ascorbate Calcium (Vitamin C) 500 Mg Tablet 500 MG PO DAILY (Reported) Atorvastatin (Lipitor) 80 Mg Tablet 80 MG PO DAILY (Reported) Cholecalciferol (Vitamin D3) (Vitamin D3) 2,000 Unit Capsule 2,000 UNIT PO DAILY (Reported) Cyanocobalamin (Vitamin B12) 500 Mcg Tablet 1,000 MCG PO DAILY (Reported) Ferrous Sulfate (Iron) 325 Mg Capsule.er 325 MG PO DAILY (Reported) Furosemide (Lasix) 20 Mg Tablet 20 MG PO DAILY (Reported) Levothyroxine (Levoxyl) 75 Mcg Tablet 75 MCG PO DAILY (Reported) Lisinopril (Lisinopril) 5 Mg Tablet 5 MG PO DAILY (Reported) Metoprolol Succinate ER (Metoprolol Succinate ER) 50 Mg Tab.er.24h 50 MG PO BID (Reported) Morphine Sulfate ER (MS Contin) 30 Mg Tablet.er 30 MG PO BID Prescribed by: ROMAN JARVIS DO Multivitamin (Multi Vitamin Daily) 1 Each Tablet 1 EACH PO DAILY (Reported) Omeprazole Magnesium (Prilosec Otc) 20 Mg Tablet.dr 20 MG PO DAILY (Reported) Tamsulosin (Flomax) 0.4 Mg Capsule 0.4 MG PO DAILY (Reported) Vitamin E Mixed (Vitamin E) 400 Unit Capsule 400 UNIT PO DAILY (Reported) Warfarin Sodium (Warfarin Sodium) 4 Mg Tablet 4 MG PO DAILY (Reported) As needed Acetaminophen (Acetaminophen) 325 Mg Tablet 325 MG PO Q4H PRN PRN For Fever Prescribed by: ROMAN JARVIS DO Ondansetron (Zofran) 4 Mg Tablet 4 MG PO Q4H PRN PRN For Nausea Prescribed by: ROMAN JARVIS DO Oxycodone (Roxicodone) 5 Mg Tablet 5 MG PO Q4H PRN PRN For Pain Prescribed by: ROMAN JARVIS DO Miscellaneous Medications ([Lovenox Bridging]) (Reported) Nitroglycerin SL (Nitroglycerin SL) 0.4 Mg Tab.subl 0.4 MG SL (Reported) Additional med instructions 1. Please take Morphine Sulfate 30 mg by mouth twice a day for pain 2. Take Tylenol 975 mg by mouth every 6 hours for pain. 3. If pain is not controlled with the medications listed above, you can take Oxycodone 5-10 mg every 4 hours as needed. 4. For nausea, take Zofran 4-8 mg every 4 hours as needed. 5. Please discontinue Coumadin. Followup Plan Discharge Diet: No restrictions Discharge Activity: No restrictions Follow-up Provider: Ehsan Hollis MD Follow-up with PCP in: 2 weeks Time spent Greater than 30 minutes was spent in preparation of discharge with greater than 50% of that time dedicated to patient counseling and coordination of care. . Attending Statement The patient was seen and examined together with Dr. Jarvis on 12/30/2016 and I agree with the history, exam and plan as outlined in the note above. . copies to: Ehsan Hollis MD, Oksana S DO Dec 30, 2016 14:19 Kp Hernandez MD Dec 31, 2016 07:47
--- NOTE | 2016-12-30 15:27 | NUR ---
patient set up on side of bed sat 84% on room air .
--- NOTE | 2016-12-30 16:03 | PCM.PNPALL ---
Date of Service Dec 30, 2016 Date of Hospital Admission: Dec 25, 2016 at 17:19 Date of Palliative Consult: Dec 26, 2016 Palliative Care Recommendation Summary of palliative recommendations: 12/30/16- PAIN--Will try MSER 30 mg BID with using for now oxycodone 5-10 mg for BTP. He has some MSIR at home and this can be the alternative. Hospice is notified of request. Equipment reviewed- O2 has yet to be determined. His is concerned re access to fluids should he become uncomfortable- reviewed hospice can deal with this if it arises. Question of anticoagulation remains. Of some concern due to ongoing rectal bleeding and may be most appropriate to not start his warfarin for another week or 2 to assess. Reason for warfarin is Afib. Nausea-if needed he responded well to haloperidol for this in hospital. If diarrhea continues- may want to check Cdiff. POLST discussion-reviewed with pt and daughter and . He defers to his at this point. They had reviewed the form last week and agree-It is now completed-DNR/DNI/ Comfort Care. She would like access to IV fluids (OK with SQ ) if need be in the future. He asks his to sign it having just received IV pain meds and felt groggy. -Symptom management (Pain/other) Nausea-proving to be a challenge to control. Most effective med has been haloperidol. Sbil-iiqs-oop recurrent and may represent pancreatic involvement. dr. Duarte has already raised the question of celiac block but hopefully this can be adequately controlled with oral meds. For now will increase his hydromorphone EMERGENCY DOCTOR-continuous as well as PRN dosing. He had benefit from MS outpt although not completely. If discharged before friday-I would suggest starting MSER 15 mg BID and continue with MSIR 15-30 mg PRN Q2-3 hours. should have prompt f/u with Dr. Hollis or myself to adjust dosing from there. GOALS OF CARE-He would like to get home as soon as possible and maximize his time at home (ie minimize his time with hospitalizations etc. He is not interested in chemo IF it is at all debilitating feeling that would take him away from his home and family. Family will benefit from well coordinated communications due to the acuteness of diagnosis and with his 's hope for christie healing. He mentioned consideration for DWD if pain became uncontrollable. Counselled re pain management as well as the timing in requesting the DWD option. -DPOA/Advanced Directives/POLST-Based on discussion will change to DNR/DNI. POLST discussion to continue. He has AD and DPOAHC completed with his as 1st proxy. -Family/emotional support-strong support within family -Spiritual support-will need this going forward. They have informed their christie community. He feels very supported by his christie and this community--Iman Courtney Additional Medical Diagnoses with primary management by Hospitalist team include : Problems: End of Life Preferences DNR/DNI Goals of Care wants to be home as soon as he would be able Disposition home when cleared by surgery and parenteral pain control is changed to PO Resuscitation Status Resuscitation Status: DNR/DNI:Do Not Resuscitate/Intubate Limited Interventions: BiPAP, Medications and IV Fluid POLST Updates/Changes Previous POLST?: No Artificially Admin Nutrition: No Artifical Nutrition by Tube POLST Discussed with: Patient . Advanced Care Planning Address: POLST Pain: Moderate Palliative Subjective Palliative Care Daily Responde: Patient, Family/Proxy, Team, Nurse Brief History 81 yo gentleman with hx of abd pain and back pain onset early Sep or before with note of an ulcerating mass in ascending colon with bx path of poorly diff medullary type carcinoma. At time of surgery there was extensive mesenteric involvement and invasion into the pancreas. His back pain had been low and intermittent in the past. More recently developed mid back pain that really accelerated in intensity. He states this improved immediately post op but is starting to return. Issues today- pain. Now switching to PO and is off EMERGENCY DOCTOR which was continuous. Has only had oxycodone. Pain is at 8. Nausea- some but not as bad as postop. [facility] Patient/Family Concerns >30 years- 3rd marriage for both of them. Blended family of 7 children- the 8th at age [id number] accident. He has 3 biological children-he is just starting to review concern for oncogene in family. Palliative Performance Scale PPS Ambulation: Reduced PPS Activity: Unable to do any work PPS Self-Care: Occasional assistance necessary PPS Intake: Normal or reduced PPS Conscious Level: Full or confusion Performace Scale: 80% Responsive Patient Symptoms Pain (current): Moderate Pain (maximium): Moderate Tiredness/Fatigue: Mild Nausea: Severe *Requires 72 Hour Followup Anxiety: Mild Drowsiness/Sleepiness: Mild Anorexia: Moderate Shortness of Breath: None Objective Findings Exam Vital Sign - Last Date Time Temp Pulse Resp B/P Pulse Ox O2 Delivery O2 Flow Rate FiO2 12/30/16 08:46 80 12/30/16 07:52 36.5 20 127/60 96 Nasal Cannula 4.00 Intake and Output 12/29/16 12/29/16 12/30/16 Cumulative From/Thru 15:00 23:00 07:00 12/24/16 08:22 - 12/30/16 05:57 Intake Total 1315 ml 534 ml 52007 ml Output Total 250 ml 300 ml 3480 ml Balance 1065 ml 234 ml 9038 ml Intake Oral 960 ml 300 ml 4253 ml IV Total 355 ml 234 ml 8265 ml Output Urine Total 250 ml 300 ml 3460 ml Estimated Blood Loss 20 ml # Voids 1 1 2 # Bowel Movements 2 4 General: Alert/Oriented x3, Moderate distress (nausea and pain), Other (after IV pain meds-mildly confused) HEENT: PERRLA, EOMI, Scleral Anicteric, Mucous Membranes Dry Heart: Dysrhythmia Present Lungs: Other (O2 dendence needs eval before discharge) Abdomen: Other (2 watery BM today, Also BRB as per daughter Annalee) Neuro: Cranial Nerve 3-12 Intact, Other (appropriate, good historian, alert, definitely decisional, has already processed much of his dx) Extremities: Other (new edema LUE-not painful. Has the IV in his hand, not red but is tender) Lab/Diagnostics Lab and Imaging results reviewed in detail in EMR. WBC 12.5 HGB 9.3 approx stable Patient/Family Conference Members Present Family Members Present Jazzy and daughter Annalee JAVED with good medical knowledge Medical Team Members Present? [facility] and Dr. Iman Edwards Discussion/Goals of Care Discussion FAMILY UNDERSTANDING OF DISEASE: All understand terminal aspect of disease. Annalee is very good at guiding her parents in understanding choices etc. Discussion re GOC-he reiterates that he is not interested in chemo He wants to go home and have as much quality time he can with his family. They are interested in hospice option. Reviewed that at this time I think this can be controlled with oral meds but celiac block can be considered if that ends up not being the case in the future. DISEASE PROGRESSION/EVIDENCE OF DECLINE: SYMPTOM BURDEN: GOALS: comfort HOPES/WORRIES: His is concerned re need of equipment in her home. Annalee has offered her house as alternative. Palliative Care counselled: Time spent Total time 35 minutes; >50% face to face with patient and/or family, providing counselling regarding plans and recommendations, and in care coordination with his/her medical teams. I also spent an additional 35 minutes counseling for advanced care planning with the patient/the patients family/the surrogate decision maker. copies to: Kat Arreola MD; Ehsan Hollis MD, Deborah A MD Dec 30, 2016 16:03
--- NOTE | 2016-12-30 16:30 | NUR ---
Discharge note Patient a/o x 3, c/o back and abd pain 5-8/10, med given with good effect. Patient c/o nausea with lunch, Zofran given with mod effect. Patient oob amb in room with sba rory fair. Abd soft positive bowel tones. Lap sites c/d/i. IV SL and tele removed intact. Discharge instructions gone over with patient . All questions answered. Prescriptions given to pt . Patient transported to car via wheelchair with all belongings and discharged home with family.
[2016-12-30] MEDS ORDERED: Morphine ER 30 mg (MS Contin) Tablet PO SCH (20:30)
--- NOTE | 2016-12-31 08:16 | NUR ---
Palliative care note D/A: Phone call to Alexandra at [facility] to inquire about arrangements. Alexandra reports that agency is going to attempt to provide info visit today at 1230. P: No further need for PC follow up. Maddy BROWNE [facility] Addendum: 12/31/16 at 0925 by EMILY RICKS PC note amendment D/A: In review of charts for stats, note new account for ED visit. No date entered yet. Phone call to Alexandra at [facility] to notify. P: Palliative care to follow as needed. Maddy BROWNE [facility] Addendum: 12/31/16 at 0956 by EMILY RICKS PC note amendment D/A: Call from Alexandra at [facility]. Able to touch base with pt, have an open now scheduled for today with RNDori Bourgeois: No further needs for PC f/u. Maddy BROWNE, CCM
--- NOTE | 2016-12-31 09:19 | NUR ---
Palliative care note (late note for 12/30/16) D/A: Case discussed in PC rounds. Pt and family confused about difference between hospice and HH. Pt actually eligible for hospice and he and family are agreeable. Discussed referral to [facility] with camryn Nguyen. She is communicating with Alexandra at [facility] regarding details. P: Palliative care to follow as needed. Maddy BROWNE [facility] Addendum: 12/31/16 at 1331 by EMILY RICKS Palliative care note amendment JANETH faxed to [facility]. JANETH was signed on 12/30/16 and notes that pt is DNR/DNI with comfort measures and that he does not wish for medically assisted nutrition by tube. Maddy BROWNE [facility]
--- NOTE | 2016-12-31 13:54 | PATH ---
SURGICAL PATHOLOGY Attending Physician:Smith Duarte MD CASE STATUS: Signed Out PATIENT NAME: CONOR BULLOCK PID: [id number] : 1935 DATE COLLECTED:12/25/2016 00:00 SPECIMEN: Colon, Segment Resection, Non-Tumor CLINICAL HISTORY: CECUM MASS 1). RIGHT AND PROXIMAL TRANSVERSE COLON, OUT 14:10 TIF 15:40 FINAL DIAGNOSIS: Colon, Segmental Resection, Right and Proximal Transverse Colon: Poorly differentiated carcinoma. Tumor site: Cecum. Tumor size: Greater dimension 4.4 cm. Macroscopic tumor perforation: Present. Histologic type: Poorly differentiated carcinoma, favor medullary carcinoma, see comment. Histologic grade: High-grade (poorly differentiated). Microscopic tumor extension: Tumor penetrates to the surface of visceral peritoneum (serosa). Margins: Proximal and distal margins: Uninvolved by invasive carcinoma. Circumferential (radial margin): Involved by invasive carcinoma. Mesenteric margin: Involved by invasive carcinoma. Lymphvascular invasion: Present, small vessel lymph-vascular invasion, extensive. Perineural invasion: Not identified. Tumor deposits: Present, multiple in subserosal fat and mesentery. Type of polyp in which invasive carcinoma arose: None identified. Pathologic staging (pTNM): Primary tumor: pT4a. Regional lymph nodes: pN2b. Number of lymph nodes examined: 12. Number of lymph nodes involved: 10. Ancillary studies: Mismatch repair protein testing was performed on the preoperative tumor biopsy ([id number]) and showed loss of expression of MLH1 and PMS2. A sample of the tumor from the resection specimen has been sent for further testing for Pinedo syndrome (initial testing for MLH-1 methylation, further testing pending that result); results will be reported in an addendum. ICD10 C18.0 NOTE: This poorly differentiated carcinoma (CK7 negative, CK20 negative) is negative for tumor specific markers for lung, prostate, kidney, and liver. Although typical colon markers (CK20, CDX2, villin) are negative, the morphologic appearance of the tumor along with histologic features and loss of mismatch repair protein expression (MLH-1 and PMS-2, see prior biopsy report) suggests medullary carcinoma of the colon. This is a diagnosis of exclusion, and metastatic carcinoma cannot be completely excluded. Correlation with clinical and imaging information is recommended. This case has been reviewed by Dr. Mathew Zeng, who concurs with the diagnosis. GROSS DESCRIPTION: The specimen is received in formalin, labeled with the patient's name and "right and proximal transverse colon". It consists of a 6 cm in length by 3 cm in diameter segment of terminal ileum and a 24 cm in length by 5.5 cm in diameter segment of cecum and large bowel. Both ends of the specimen are stabled. A 6 cm in length by 1.1 cm in diameter appendix is present. The serosa over the proximal portion of the specimen contains multiple adhesions. There is a firm, daniels-white mass palpable at the ileocecal junction, as well as multiple other firm masses palpated along the length of the colon. Portions of these masses are visible at the mesenteric resection margin. Also along the mesenteric resection margin there is a 1 cm defect in the colonic wall. The proximal and distal resection margins are inked green, the mesenteric resection margin is inked black, and the serosa overlying the mass is inked blue. Opening the specimen reveals an ulcerated, raised, black-brown mass located 4 cm from the ileocecal junction, which measures 4.4 x 4.3 x 3.5 cm and extends through the previously described defect in the colonic wall. The mucosa surrounding the mass is hyperemic. 4.5 cm distal to the mass there is a second mass measuring 3.9 x 2.5 x 1.4 cm. The mucosa over the mass is hyperemic, and the mass appears to extend to the black-inked mesenteric margin. The remaining mucosa is daniels-brown and grossly unremarkable. The appendix is serially sectioned to reveal one daniels-brown fecalith measuring 1.2 cm and is otherwise unremarkable. The pericolonic fat adjacent to the tumor appears to be infiltrated by tumor. Fifteen possible lymph nodes are identified ranging from 0.3 x 0.2 x 0.2 cm to 0.7 x 0.5 x 0.5 cm. [employer] sections are submitted as follows: A-proximal resection margin en face; B-distal resection margin en face; C-E-first mass with mesenteric resection margin; F-first mass with adjacent uninvolved mucosa; G-H-second mass with mesenteric resection margin; I-second mass with adjacent uninvolved mucosa; J-mucosa between masses; K-appendix; L-normal appearing ileal mucosa; M-ileocecal junction; N-normal appearing colic mucosa; I-H-anzdjmqkekr fat with probable tumor and mesenteric margin; R-T-four lymph node candidates per cassette; U-three lymph node candidates (WILMA:[id number]) MICRO DESCRIPTION: Sections of the largest mass and the second mass in the colon show identical histologic features, with sheets and nests of cells with large vesicular nuclei and prominent nucleoli. No significant gland formation is identified. The tumor invades completely through the wall of the colon with mucosal ulceration and many areas of necrosis. In addition, there are extensive intravascular tumor nests. Many tumor nests are present in the mesentery and the mesenteric margin is positive for tumor. There are multiple lymph nodes with metastatic implants as well. See diagnostic field for additional details. Immunohistochemical stains are performed for further evaluation of the tumor, and the prior biopsy IHC studies are reviewed as well. The tumor in the current biopsy (block 1I) is stained with the following antibodies, with the following results. Positive and negative controls stain appropriately. ANTIBODYRESULT BINH protein (BINH):Positive. CK7 (OV-TL12/30): Negative. CK20 (SP32):Negative. CDX2 (88):Negative. TTF1(8G7G3/1):Negative. PSA (ER/PR8):Negative. Interpretation: These results match the prior core biopsy, and provide additional evidence against metastatic lung or prostate carcinoma. 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 * This test was developed and its performance characteristics determined by [employer]. It has not been cleared or approved by the U.S. Food and Drug Administration. The FDA has determined that such clearance or approval is not necessary. This test is used for clinical purposes. It should not be regarded as investigational or for research. ICD-9 CODES: CPT CODES: 1: 68544, 97427, 22060, 54415, 41267, 40620, 33903 PROCEDURE/ADDENDA: Addendum SPI Addendum Diagnosis TEST: MLH1 Promoter Methylation, Paraffin MLH1 Promoter Methylation Result: Positive This result has been reviewed and approved by Mekhi Vazquez M.D. MLH1 promoter methylation was detected. Addendum Comment Please see [employer] Report [id number] or Integrated Oncology Report [id number] for complete details. This Test was performed by [employer] [facility] at [address] [place] [address], [id number]. Electronically Signed Out Neno Ramos MD Electronically Signed Out Janae Ambrosio MD [facility] [address], [place] [address] Technical component performed at [facility], [address], [place], [address]
== END 2016-12-30 16:35 | disposition home or self-care (01) | DRG 330 ==
LOC: SAS 09:06 → CCU 17:19 → PCC 12-26 09:00
PROVIDERS: ADMIT General Practice; ATTEND General Practice
PROC: 0DTF4ZZ Resection of Right Large Intestine, Percutaneous Endoscopic Approach (ICD-10-PCS; principal; 2016-12-25 11:00)
DX: C18.2 Malignant neoplasm of ascending colon (principal); I47.2 Ventricular tachycardia; B37.0 Candidal stomatitis; I48.0 Paroxysmal atrial fibrillation; Z87.891 Personal history of nicotine dependence; Z95.0 Presence of cardiac pacemaker; Z79.01 Long term (current) use of anticoagulants; I25.10 Atherosclerotic heart disease of native coronary artery without angina pectoris; Z95.1 Presence of aortocoronary bypass graft; D64.9 Anemia, unspecified; E03.9 Hypothyroidism, unspecified; Z85.72 Personal history of non-Hodgkin lymphomas; Z66 Do not resuscitate